=== PATIENT | female | born 1985 ===

== ENCOUNTER 2024-08-07 18:22 | Inpatient (IN) | payer SELFPAY ==
[2024-08-07] VITALS (15 sets, daily range): BP systolic 101–154; BP diastolic 40–119; PULSE 57–118; RESP 9–30; TEMP 35–39.3; O2SAT 92–100; BMI 23.0; BMI 32.0
--- NOTE | ~2024-08-07 | CT_ITS ---
CLINICAL HISTORY: fever, undifferentiated ,pt combative and unable to hold still. Best images obtain ed CT abdomen and pelvis without contrast Comparison: Chest CT from same day. Findings: Mild bibasilar atelectasis/pneumonitis. Please refer to separate report for chest CT evaluation. Mild splenomegaly. Portions of the liver are obscured in this noncontrast study with artifacts including motion artifacts, superficial metal, and positioning of the upper extremities. Mild volume loss including the tail of the pancreas. Gallbladder is unremarkable for noncontrast CT with artifacts. Adrenal glands are partly obscured but otherwise unremarkable. No hydronephrosis. No definite obstructing stone of either kidney or either ureter. A small focus of gas in the urinary bladder is nonspecific can be seen with Starks catheter placement and/or recent instrumentation. No definite drainable abscess by CT. Ventral superficial gas anomalies likely related to medicinal injections. Small mesenteric and periaortic lymph nodes are nonspecific and may be reactive. Mild free fluid in the abdomen and pelvis is nonspecific and greater than expected for physiologic fluid. No small bowel obstruction. Severe stool burden present, including the cecum. Imaged appendix within normal limits (imaged 68 through 63 of series 11 right ovary approaches the upper limits of normal by noncontrast CT. Left adnexa is unremarkable for noncontrast CT. Imaged uterus is mildly retroverted and retroflexed. Mild distention of the urinary bladder. No free intraperitoneal air. Multilevel Schmorl's nodes of the imaged spine. Mild pelvis deformities appear old/chronic. Facet arthropathy noted particularly in the lower lumbar spine. IMPRESSION: 1. No hydronephrosis. 2. Severe stool burden. No small bowel obstruction. 3. Small focus of gas in the urinary bladder may be related to Starks catheter placement or instrumentation. 4. Mild free fluid in the pelvis is greater than expected for physiologic. Differential considerations include findings of pelvic inflammatory disease. No definite drainable abscess by noncontrast CT. This document has been electronically signed by: Clarence Galarza MD on 08/07/2024 23:13:05
--- NOTE | ~2024-08-07 | CT_ITS ---
CLINICAL HISTORY: aMS, hx TBI CT head without contrast Comparison: Head CT from 08/07/2024 Findings: No acute intracranial hemorrhage. No midline shift or hydrocephalus. No large arterial territorial infarction by CT. Mild volume loss is generalized including imaged vermis. Fluid and mucosal thickening of the paranasal sinuses multifocal. Indwelling nasoenteric tube is partially imaged on the left. Trace mastoid effusions. No acute skull fracture. Likely soft tissue swelling of the left frontal convexity anterior scalp. Degenerative changes include imaged temporomandibular joints. IMPRESSION: No acute intracranial abnormality by CT. This document has been electronically signed by: Clarence Galarza MD on 08/08/2024 00:02:13
--- NOTE | ~2024-08-07 | XR_ITS ---
CLINICAL HISTORY: ETT, OG tube placement 1 view chest x-ray Comparison: Chest CT from 08/07/2024. Findings: Bilateral airspace disease concerning for pneumonitis/pneumonia, right worse than left. Low lung volumes noted. The endotracheal tube terminates in the mid to lower thoracic trachea. Tip of the enteric tube terminates superior likely in the upper esophagus looped tube about the gastroesophageal junction. No definite pneumothorax or pleural effusion. No displaced rib fracture by one view portable radiograph. IMPRESSION: 1. Abnormal positioning of the enteric tube with tip directed superiorly in the upper thorax unlikely proximal esophagus. 2. The endotracheal tube terminates in the mid to lower thoracic trachea. This document has been electronically signed by: Clarence Galarza MD on 08/07/2024 23:40:29
--- NOTE | ~2024-08-07 | CT_ITS ---
CLINICAL HISTORY: head pain ,pt combative and unable to hold still. Best images obtained CT head without contrast Comparison: None Findings: Study is degraded by motion artifacts. No significant midline shift. No hydrocephalus. Cavum velum interpositum. No definite acute intracranial hemorrhage, accounting for artifacts. Parenchyma is partly obscured by motion artifacts without defined large arterial territorial infarction. No definite acute skull fracture of the imaged calvarium accounting for motion artifacts. Fluid and mucosal thickening of the paranasal sinuses nonspecific. Likely small right mastoid effusion. IMPRESSION: 1. No hydrocephalus or midline shift. 2. No definite acute intracranial hemorrhage accounting for artifacts. This document has been electronically signed by: Clarence Galarza MD on 08/07/2024 23:04:21
--- NOTE | ~2024-08-07 | CT_ITS ---
CLINICAL HISTORY: found in floor unresponsive, AMS CT cervical spine without contrast Comparison: CT of the cervical spine from 08/07/2024. Findings: Endotracheal tube and enteric tube are partially imaged in the [id number]. Accessory ribs noted at C7. No acute fracture of the cervical spine. Mild straightening of the cervical lordosis. No significant osseous spinal stenosis by CT. No paraspinal hematoma. Mild subcutaneous edema is noted. Lungs are mostly obscured. Please refer to chest CT report. IMPRESSION: No acute fracture of the cervical spine. This document has been electronically signed by: Clarence Galarza MD on 08/08/2024 00:00:54
--- NOTE | ~2024-08-07 | CT_ITS ---
CLINICAL HISTORY: fever, undifferentiated ,pt combative and unable to hold still. Best images obtain ed CT chest without contrast Comparison: None available Findings: Bibasilar atelectasis and/or pneumonitis accentuated by motion artifacts. Pneumonia considered given consolidation in the posterior basal segmental right lower lobe measuring 1.5 cm. Other lung lesions not excluded at this time. No definite mediastinal hematoma accounting for motion artifacts and mild residual thymic tissue. Mild mediastinal fluid noted. No definite enlarged mediastinal lymphadenopathy by noncontrast CT with motion artifacts. Transitional vertebral anatomy. Small 1st ribs for the purposes of this dictation only. Mild height losses of the T6, T7, and T8 appear old/chronic, by this numbering system. Vacuum disc phenomenon including T8-T9. Facet arthropathy in mid and lower thoracic spine greater than expected for age. No definite displaced rib fracture in the field of view accounting for artifacts. Please refer to separate report for included partially imaged abdomen. IMPRESSION: Bilateral pulmonary opacities concerning for pneumonitis and/or pneumonia. Recommend attention on follow-up to ensure resolution. This document has been electronically signed by: Clarence Galarza MD on 08/07/2024 23:15:40
--- NOTE | ~2024-08-07 | CT_ITS ---
CLINICAL HISTORY: neck pain , pt combative and unable to hold still. Best images obtained CT cervical spine without contrast Comparison: None available Findings: Study is degraded by motion artifacts. No definite acute fracture of the cervical spine accounting for motion artifacts. Mild degenerative changes include facet arthropathy. Likely moderate left-sided foraminal narrowing at C2-C3 accounting for artifacts. No significant osseous spinal canal stenosis by CT with artifacts. No definite drainable paraspinal fluid collection or defined paraspinal hematoma. Motion artifacts noted in the imaged lung apices. IMPRESSION: No definite acute fracture accounting for artifacts. This document has been electronically signed by: Clarence Galarza MD on 08/07/2024 23:01:15
--- NOTE | 2024-08-07 18:51 | ED.AMS ---
HPI - Altered Mental Status General Chief Complaint: Altered Mental Status Stated Complaint: non verbal, ?syncope, unable o get info Time Seen by Provider: 08/07/24 18:51 Source: patient and EMS Mode of arrival: EMS Limitations: language barrier and altered mental status History of Present Illness ED Provider: Stephan Lainez DO HPI narrative: Suspected 39-year-old female with unknown name and unable to elicit with multiple attempts who is nonverbal and was brought in by EMS after being found on the ground at [facility] with suspected syncope versus seizure activity. The patient required my immediate attention due to potential serious illness and undifferentiated state. I am unable to obtain a full history despite multiple attempts using claims analyst. The patient is able to tell me that she had a traumatic brain injury in the past and has had seizures. Does report 6/10 nonspecific headache and anterior neck pain. Unable to elicit any medication history. Unable to elicit if the patient is experiencing any pain or respiratory distress otherwise. Unable to elicit if she is using recreational drugs. Related Data Allergies Allergy/AdvReac Type Severity Reaction Status Date / Time No Known Allergies Allergy Verified 08/07/24 18:41 Review of Systems Review of Systems: Yes Unobtainable due to mental condition and Unobtainable due to mental status PMFSH Social History Social History Do you have a plan to hurt others: No Plan Physical Exam ED Vital Signs: Vital Signs - 24 hr 08/07/24 18:38 08/07/24 19:02 08/07/24 20:30 Temperature 102.8 F H 102.6 F H Pulse Rate 72 90 83 Respiratory Rate 18 20 20 Blood Pressure 154/73 H 154/73 H 134/56 L Pulse Oximetry 96 92 95 Oxygen Delivery Method Nasal Cannula Room Air Nasal Cannula Oxygen Flow Rate 2 Fraction of Inspired Oxygen 08/07/24 20:30 08/07/24 21:30 08/07/24 21:56 Temperature 101.8 F H 100.5 F H Pulse Rate 74 60 Respiratory Rate 9 L 16 Blood Pressure 134/56 L 105/44 L Pulse Oximetry 100 100 Oxygen Delivery Method Nasal Cannula Nasal Cannula Oxygen Flow Rate 5 2 Fraction of Inspired Oxygen 30 08/07/24 22:00 08/07/24 22:11 08/07/24 22:13 Temperature Pulse Rate 93 90 118 H Respiratory Rate 18 18 16 Blood Pressure 152/119 H 131/56 L 131/56 L Pulse Oximetry 94 100 100 Oxygen Delivery Method Nasal Cannula Ambu-Bag Ambu-Bag Oxygen Flow Rate 2 Fraction of Inspired Oxygen 08/07/24 22:48 08/07/24 22:57 08/07/24 23:12 Temperature Pulse Rate 85 71 71 Respiratory Rate 30 H 16 17 Blood Pressure 136/73 128/75 101/40 L Pulse Oximetry 100 100 98 Oxygen Delivery Method Oxygen Flow Rate Fraction of Inspired Oxygen 08/07/24 23:24 08/07/24 23:30 08/07/24 23:38 Temperature 98.4 F 98.4 F Pulse Rate 59 57 67 Respiratory Rate 25 H 16 16 Blood Pressure 101/41 L 122/54 L 117/52 L Pulse Oximetry 97 Oxygen Delivery Method Oxygen Flow Rate Fraction of Inspired Oxygen 08/07/24 23:52 08/08/24 00:30 08/08/24 00:37 Temperature 98.1 F Pulse Rate 66 78 85 Respiratory Rate 17 20 16 Blood Pressure 135/76 155/87 H Pulse Oximetry 96 100 Oxygen Delivery Method Mechanical Ventilation Oxygen Flow Rate Fraction of Inspired Oxygen BMI result Body Mass Index 32.0 Constitutional: ?Alert at times, somnolent at times, multiple episodes of possible seizure activity although responding to pain and without postictal state. Able to communicate with gyn physician intermittently. HEENT: ?Normocephalic, atraumatic. ?Moist mucous membranes Eyes: ?PERRL, EOMI Neck: ?Supple, nontender Chest: ?No chest wall tenderness Respiratory: ?Lungs clear to auscultation, no increased work of breathing Cardio: ?Regular rate and rhythm, no murmur, 2+ radial and DP pulses symmetrically GI: ?Soft, nondistended, nontender Back: ?Normal range of motion, nontender Skin: ?No rash, no lesions, multiple old scars of the extremities Neuro: ?Unable to obtain orientation, significantly limited neurologic exam, no nystagmus or deviation of gaze, moves all 4 extremities, no focal deficits Extremities: ?No swelling or tenderness, full range of motion Psych: ?Uncooperative with evaluation and workup, occasionally thrashing about with attempts to obtain IV access. Medications Administered Generic Name Dose Route Start Last Admin Trade Name Freq PRN Reason Stop Dose Admin Midazolam HCl 50 mg in 50 mls @ 2 mls/hr 08/07/24 22:30 08/07/24 22:57 Versed IVCONT 10 mg/hr .Q24H JUAN 10 mls/hr Infusion Protocol 2 MG/HR Propofol 1,000 mg in 100 mls @ 0 mls/hr 08/07/24 23:00 08/07/24 23:52 Diprivan IVCONT 50 mcg/kg/min .Q0M JUAN 31.26 mls/hr Titration Protocol Per Protocol Fentanyl 1,000 mcg in 100 mls @ 0 mls/hr 08/08/24 00:15 08/08/24 00:30 Sublimaze/Ns IVCONT 25 mcg/hr .Q0M JUAN 2.5 mls/hr Administration Protocol Per Protocol Discontinued Medications Generic Name Dose Route Start Last Admin Trade Name Freq PRN Reason Stop Dose Admin Ceftriaxone Sodium 1 gm 08/07/24 21:28 08/08/24 00:09 Ceftriaxone Sodium 1 Gm Vial IVPUSH 08/07/24 21:29 1 gm ONCE ONE Administration Droperidol 2.5 mg 08/07/24 20:48 08/07/24 20:55 Droperidol 5 Mg/2 Ml Vial IVPUSH 08/07/24 20:49 2.5 mg ONCE ONE Administration Etomidate 20 mg 08/07/24 21:13 08/07/24 22:11 Etomidate 20 Mg/10 Ml Vial IVPUSH 08/07/24 21:14 20 mg NOW STA Administration Fentanyl 100 mcg 08/08/24 00:20 08/08/24 00:25 Fentanyl Citrate/Pf 100 Mcg/2 Ml Vial IVPUSH 08/08/24 00:21 100 mcg ONCE ONE Administration Protocol Levetiracetam 4,500 mg/ Sodium 145 mls @ 520 mls/hr 08/07/24 19:30 08/07/24 20:08 Chloride IV 08/07/24 19:46 Infused ONCE ONE Infusion Acetaminophen 1,000 mg in 100 mls @ 400 mls/hr 08/07/24 19:51 08/07/24 20:10 Ofirmev IV 08/07/24 20:05 Infused ONCE ONE Infusion Sodium Chloride 1,000 mls @ 999 mls/hr 08/07/24 21:28 08/08/24 00:10 Ns IVCONT 08/07/24 22:28 999 mls/hr .Q1H1M ONE Administration Ketamine HCl 72.7 mg 08/07/24 21:45 08/07/24 21:55 Ketamine Hcl 500 Mg/5 Ml Vial 1 mg/kg (72.7 mg) 08/07/24 21:46 72.7 mg IVPUSH Administration ONCE ONE Ketamine HCl 72.7 mg 08/07/24 23:00 08/07/24 22:00 Ketamine Hcl 500 Mg/5 Ml Vial 1 mg/kg (72.7 mg) 08/07/24 23:01 72.7 mg IVPUSH Administration ONCE ONE Midazolam HCl 10 mg 08/07/24 19:28 08/07/24 19:32 Midazolam Hcl 5 Mg/Ml Vial IM 08/07/24 19:29 10 mg ONCE ONE Administration Midazolam HCl 10 mg 08/07/24 20:15 08/07/24 19:05 Midazolam Hcl 10 Mg/10 Ml Vial IM 08/07/24 20:16 10 mg ONCE ONE Administration Midazolam HCl 4 mg 08/07/24 20:36 08/07/24 20:40 Midazolam Hcl 2 Mg/2 Ml Vial IVPUSH 08/07/24 20:37 4 mg ONCE ONE Administration Propofol 100 mg 08/07/24 23:12 08/07/24 22:57 Propofol 200 Mg/20 Ml Vial IVPUSH 08/07/24 23:13 100 mg ONCE ONE Administration Rocuronium [place] 100 mg 08/07/24 21:13 08/07/24 22:12 Rocuronium [place] 50 Mg/5 Ml Vial IVPUSH 08/07/24 21:14 100 mg ONCE ONE Administration Medical Decision Making Medical Decision Making MDM Narrative: This is an undifferentiated patient with very minimal information elicited from history and exam. There are no clear findings of infection on exam however the patient does have a rectal temperature of nearly 103 degrees F. despite multiple efforts to redirect the patient poor cooperation for medical care, the patient continued to thrash about. She received 2 doses of midazolam, each 10 mg IM. Another provider was able to obtain an ultrasound guided IV and the patient received IV Tylenol. Although the patient does not meet criteria for sepsis at this time, we will pursue broad infectious workup. Due to potential epileptic seizures although much more likely psychogenic/nonepileptic seizures present, the patient received status epilepticus dosing of levetiracetam. Due to the head pain, we attempted to undergo CT imaging although the patient continued to thrash about and received 2.5 mg of IV droperidol with no improvement. The patient may require deep sedation in order to obtain further workup including proper CT imaging as well as lumbar puncture for concern for meningitis. The patient will be signed out to the pending the remainder of the workup. I did review the patient's initial labs which show an anemia of 8.7 with no prior for comparison, no leukocytosis or significant leukopenia, borderline hypoglycemia but none to explain the symptoms, mild hypokalemia, unremarkable lactic acid, unremarkable venous blood gas and negative serum tox screen. Differential diagnosis continues to be broad. I received sign-out from my colleague Dr. Lainez empiric treatment was started including IV fluids, vancomycin and ceftriaxone patient has already received 24 mg of Versed, 2.5 mg of droperidol. Patient is still moving and we can not get any images done. I gave the patient 2 milligrams/kilogram of ketamine. Patient is still awake, thrashing, unable to get her still for imaging. Patient has a very large amount of medications patient is still awake a moving and trying to rip her lines out. Patient was intubated with 20 of etomidate, 100 of rocuronium. She is on a Versed drip and propofol drip CT scan images were obtained successfully. Patient is now waking up again despite being on maximum dose of Versed and propofol, patient is now on a 3rd drip now with fentanyl. My interpretation of labs: Patient's white blood cell count 4.6, hemoglobin 8.7, hematocrit 27.6, platelets 241. chemistry shows a potassium of 3.2, repleted IV, lactic acid 1.0, hCG negative, LFTs pending. Urinalysis negative for UTI, toxicology positive for fentanyl, barbiturates, benzodiazepines, THC. Negative for alcohol CT scan of the abdomen shows mild free fluid in the pelvis. CT scan of the chest shows bilateral pulmonary opacities, pneumonitis versus pneumonia cervical spine does not show any acute abnormalities, head CT no acute abnormalities since the patient came in with altered mental status and fever, a lumbar puncture was attempted. However, it was unsuccessful. Patient is already being treated with empiric IV Antibiotics patient's blood pressure is stable, normal lactic, no tachycardic, sepsis is not suspected I discussed the patient with Dr. Hays of, patient being admitted Differential Diagnosis Differential Diagnoses: The differential diagnosis associated with the presentation includes ( as above) Admission/Observation Consideration of admission/observation: Escalation of care including admission/observation considered Lab Data MDM Lab Attestation statement: I reviewed the patient's lab results. 08/07/24 19:44 08/07/24 19:44 Labs: Lab Results 08/07/24 08/07/24 08/07/24 Range/Units 19:01 19:44 19:52 WBC 4.6 L (4.8-10.8) X10*3/uL RBC 3.76 L (4.20-5.50) X10*6/uL Hgb 8.7 L (12.0-16.0) g/dl Hct 27.6 L (37.0-47.0) % MCV 73.4 L (80.0-98.0) fL MCH 23.1 L (27.0-33.0) pg MCHC 31.5 (31.0-35.0) g/dl RDW 15.9 (11.0-16.0) % Plt Count 241 (160-400) X10*3/uL MPV 11.6 (9.4-12.3) fL Immature Gran % (Auto) 1.1 H (0.0-0.4) % Neut % (Auto) 79.0 H (45-73) % Lymph % (Auto) 12.7 L (20-40) % [place] % (Auto) 4.6 (2-11) % Eos % (Auto) 1.5 (0-4) % Baso % (Auto) 1.1 (0-2) % Lymph # (Auto) 0.6 L (1.2-4.9) X10*3/uL [place] # (Auto) 0.2 (0.1-1.2) X10*3/uL Eos # (Auto) 0.1 (0.0-0.4) X10*3/uL Baso # (Auto) 0.1 (0.0-0.2) X10*3/uL Abs Immat Gran (auto) 0.05 H (0.00-0.03) X10*3/uL Absolute Neuts (auto) 3.6 (2.0-8.3) x10*3/uL Absolute Nucleated RBC 0.020 H (0.0-0.012) X10*3/uL Nucleated RBC % (auto) 0.4 H (0.0-0.2) /100WBC VBG pH 7.41 (7.32-7.43) VBG pCO2 33 mmHg VBG pO2 41 mmHg VBG HCO3 21 L (22-26) mmol/L VBG O2 Saturation 62.0 % VBG Base Excess -2.3 mmol/L Sodium 141 (135-145) mmol/L Potassium 3.2 L (3.3-5.1) mmol/L Chloride 109 H (96-108) mmol/L Carbon Dioxide 20 L (22-29) mmol/L Anion Gap 15 (12-20) BUN 10 (9-16) mg/dL Creatinine 0.78 (0.5-1.4) mg/dL Estim Creat Clear Calc 103.6 Estimated GFR > 60 POC Glucose 71 (60-115) mg/dL Random Glucose 89 (60-115) mg/dL Lactic Acid 1.0 (0.5-2.0) mmol/L Calcium 8.3 L (8.4-10.2) mg/dL Beta HCG, Quant < 2 mIU/mL Urine Color Urine Appearance Urine pH (5.0-9.0) Ur Specific Reva (1.005-1.025) Urine Protein (Neg-Trace) mg/dL Urine Glucose (UA) (Negative) mg/dL Urine Ketones (Negative) mg/dL Urine Blood (Negative) Urine Nitrite (Negative) Ur Leukocyte Esterase (Negative) Salicylates < 5.0 L (15-30) mg/dL Urine Opiates Screen (Not Detect) Ur Buprenorphine Scrn (Not Detect) ng/mL Ur Oxycodone Screen (Not Detect) ng/mL Urine Methadone Screen (Not Detect) ng/mL Urine Fentanyl Screen (Not Detect) Acetaminophen < 3 (<30) mcg/mL Ur Barbiturates Screen (Not Detect) Ur Phencyclidine Scrn (Not Detect) Ur Amphetamines Screen (Not Detect) U Benzodiazepines Scrn (Not Detect) Urine Cocaine Screen (Not Detect) U Marijuana (THC) Screen (Not Detect) Ethyl Alcohol < 10 mg/dL 08/07/24 Range/Units 23:34 WBC (4.8-10.8) X10*3/uL RBC (4.20-5.50) X10*6/uL Hgb (12.0-16.0) g/dl Hct (37.0-47.0) % MCV (80.0-98.0) fL MCH (27.0-33.0) pg MCHC (31.0-35.0) g/dl RDW (11.0-16.0) % Plt Count (160-400) X10*3/uL MPV (9.4-12.3) fL Immature Gran % (Auto) (0.0-0.4) % Neut % (Auto) (45-73) % Lymph % (Auto) (20-40) % [place] % (Auto) (2-11) % Eos % (Auto) (0-4) % Baso % (Auto) (0-2) % Lymph # (Auto) (1.2-4.9) X10*3/uL [place] # (Auto) (0.1-1.2) X10*3/uL Eos # (Auto) (0.0-0.4) X10*3/uL Baso # (Auto) (0.0-0.2) X10*3/uL Abs Immat Gran (auto) (0.00-0.03) X10*3/uL Absolute Neuts (auto) (2.0-8.3) x10*3/uL Absolute Nucleated RBC (0.0-0.012) X10*3/uL Nucleated RBC % (auto) (0.0-0.2) /100WBC VBG pH (7.32-7.43) VBG pCO2 mmHg VBG pO2 mmHg VBG HCO3 (22-26) mmol/L VBG O2 Saturation % VBG Base Excess mmol/L Sodium (135-145) mmol/L Potassium (3.3-5.1) mmol/L Chloride (96-108) mmol/L Carbon Dioxide (22-29) mmol/L Anion Gap (12-20) BUN (9-16) mg/dL Creatinine (0.5-1.4) mg/dL Estim Creat Clear Calc Estimated GFR POC Glucose (60-115) mg/dL Random Glucose (60-115) mg/dL Lactic Acid (0.5-2.0) mmol/L Calcium (8.4-10.2) mg/dL Beta HCG, Quant mIU/mL Urine Color Yellow Urine Appearance Clear Urine pH 6.0 (5.0-9.0) Ur Specific [place] 1.015 (1.005-1.025) Urine Protein Trace (Neg-Trace) mg/dL Urine Glucose (UA) Negative (Negative) mg/dL Urine Ketones 15 (Negative) mg/dL Urine Blood Negative (Negative) Urine Nitrite Negative (Negative) Ur Leukocyte Esterase Negative (Negative) Salicylates (15-30) mg/dL Urine Opiates Screen Not Detected (Not Detect) Ur Buprenorphine Scrn Not Detected (Not Detect) ng/mL Ur Oxycodone Screen Not Detected (Not Detect) ng/mL Urine Methadone Screen Not Detected (Not Detect) ng/mL Urine Fentanyl Screen POSITIVE H (Not Detect) Acetaminophen (<30) mcg/mL Ur Barbiturates Screen POSITIVE H (Not Detect) Ur Phencyclidine Scrn Not Detected (Not Detect) Ur Amphetamines Screen Not Detected (Not Detect) U Benzodiazepines Scrn POSITIVE H (Not Detect) Urine Cocaine Screen Not Detected (Not Detect) U Marijuana (THC) Screen POSITIVE H (Not Detect) Ethyl Alcohol mg/dL Independent Interpretation I performed an independent interpretation of an: EKG and CT Scan Interpretation: Normal sinus rhythm at 74 beats per minute, normal axis, unremarkable intervals, no diagnostic ST or T-wave abnormalities, no prior for comparison. Radiology Impression Discussion of test interpretation with radiology: I have reviewed the radiologist's reading. Radiologist Impression: No acute intracranial abnormality by CT. No acute fracture of the cervical spine. Abnormal positioning of the enteric tube with superiorly directed tip of the enteric tube likely in the upper esophagus we will replace the OG tube Bilateral pulmonary opacities concerning for pneumonitis and/or pneumonia. Recommend attention on follow-up to ensure resolution. 1. No hydronephrosis. 2. Severe stool burden. No small bowel obstruction. 3. Small focus of gas in the urinary bladder may be related to Starks catheter placement or instrumentation. 4. Mild free fluid in the pelvis is greater than expected for physiologic. Differential considerations include findings of pelvic inflammatory disease. No definite drainable abscess by noncontrast CT. Critical Care Time Critical Care Time Critical Care Time: Yes Total Critical Care Time: 75 Attestation: Given the patient's uncooperation, frequent bedside monitoring with multiple possible seizures, status epilepticus dosing of benzodiazepines and anticonvulsant therapy, treatment for fever and evaluation of sedation after multiple rounds of medication with potential for deterioration, required critical care time as above. Stephan Lainez DO I have personally provided 90 minutes of critical care time. Time includes review of lab data, radiology results, discussion with consultants, and monitoring for potential decompensation. Intervention performed as documented. Discharge Plan Discharge Clinical Impression: Acute febrile illness, Seizure-like activity, Encephalopathy Patient Disposition: Admitted As Inpatient
[2024-08-07 19:04] LABS: Glucose, Whole Blood 71 mg/dL (60-115)
[2024-08-07] MEDS: Midazolam HCl 5 MG/ML VIAL 10 MG IM (19:32)
[2024-08-07 19:51] LABS: MANUAL DIFF FLAG NO
[2024-08-07] MEDS: Acetaminophen 1,000 MG/100 ML PIGGYBACK 400 MG IV (19:55)
[2024-08-07 19:56] LABS: Venous Blood Gas Refer to POC result
[2024-08-07 19:56] LABS: VBG Base Excess -2.3 mmol/L; VBG HCO3 21 mmol/L (22-26); VBG pCO2 33 mmHg; VBG pH 7.41 (7.32-7.43); VBG pO2 41 mmHg
--- NOTE | 2024-08-07 20:05 | PC.NURSE ---
This RN entered room to assist security w/ getting patient back into the bed. Determined w/ EMS that patient might speak ALS, video building construction foreman obtained. Patient able to tell building construction foreman her name - Kelsi, that she fell and hit her head, and that her head and L collar bone area are hurting. Patient increasingly agitated, second RN Adriana to get provider Dr. Aguilar. Provider then at bedside asking patient questions via building construction foreman, patient able to answer minimally. Patient suddenly unresponsive, flopped back on bed. Additional assistance summoned, patient placed on monitor. Verbal order for 10IM Versed obtained from Dr. Aguilar, given in 2 doses in L gluteus. Patient repositioned on bed, plan to obtain blood work/IV in place. Primary RN Elise made aware.
[2024-08-07 20:08] LABS: Anion Gap 15 (12-20); Blood Urea Nitrogen 10 mg/dL (9-16); Calcium 8.3 mg/dL (8.4-10.2); Carbon Dioxide 20 mmol/L (22-29); Chloride 109 mmol/L (96-108); Creatinine Clr Calc Pharmacy 103.6; Estimated Glomerular Filt Rate > 60; Ethanol < 10 mg/dL; Glucose Random 89 mg/dL (60-115); Potassium 3.2 mmol/L (3.3-5.1); Sodium 141 mmol/L (135-145)
[2024-08-07 20:11] LABS: Acetaminophen LAB < 3 mcg/mL (<30); Salicylate < 5.0 mg/dL (15-30)
[2024-08-07 20:21] LABS: Basophils Absolute Auto 0.1 X10*3/uL (0.0-0.2); Basophils Percent Auto 1.1 % (0-2); Eosinophils Absolute Auto 0.1 X10*3/uL (0.0-0.4); Eosinophils Percent Auto 1.5 % (0-4); Hematocrit 27.6 % (37.0-47.0); Hemoglobin 8.7 g/dl (12.0-16.0); Imm Gran Abs Auto 0.05 X10*3/uL (0.00-0.03); Imm Gran Pct Auto 1.1 % (0.0-0.4); Lymphocytes Absolute Auto 0.6 X10*3/uL (1.2-4.9); Lymphocytes Percent Auto 12.7 % (20-40); Mean Corpuscular HGB Conc 31.5 g/dl (31.0-35.0); Mean Corpuscular Hemoglobin 23.1 pg (27.0-33.0); Mean Corpuscular Volume 73.4 fL (80.0-98.0); Mean Platelet Volume 11.6 fL (9.4-12.3); Monocytes Absolute Auto 0.2 X10*3/uL (0.1-1.2); Monocytes Percent Auto 4.6 % (2-11); NRBC Pct Auto 0.4 /100WBC (0.0-0.2); Neutrophils Absolute Auto 3.6 x10*3/uL (2.0-8.3); Platelet Count 241 X10*3/uL (160-400); Red Blood Count 3.76 X10*6/uL (4.20-5.50); Red Cell Distribution Width 15.9 % (11.0-16.0); White Blood Count 4.6 X10*3/uL (4.8-10.8)
[2024-08-07] MEDS: Midazolam HCl 2 MG/2 ML VIAL 4 MG IVPUSH (20:40)
--- NOTE | 2024-08-07 20:51 | PC.NURSE ---
Assisted with pt care as the primary RN, Elise, was not in the room and the second RN, Meli, who was providing care along with day shift RN's Adriana and Anette, was called to a Code Blue. PT is deaf and video medical stenographer being used at bedside. Pt brought in for AMS after a reported HS from syncopal episode. PT refusing care, expressing desire to leave the ED. PT report she lives alone and does not have family or emergency contacts. PT began experiencing recurrent seizure activity with notable hand stiffness, side eye gazing and unresponsiveness. During episodes, pt desating to 78% 02 applied via NC at 4L. TW administered 2nd dose of versed administered as per may. Ultrasound guided IV placed by Kush Briggs upper arm- labs drawn and sent to lab. Pt found to be febrile- provider notified and medications administered as per may. Clarified Keppra dosing with provider, who confirmed this is the maximum dose used for suspected status epilepticus, which the patient appeared to be experiencing. Notified primary RN at 1951 of pts possible septic status
[2024-08-07] MEDS: droPERidol 5 MG/2 ML VIAL 2.5 MG IVPUSH (20:55)
[2024-08-07] MEDS: Ketamine HCl 500 MG/5 ML VIAL 72.7 MG IVPUSH ×2 (21:55→22:00)
--- NOTE | 2024-08-07 22:10 | PC.NURSE ---
Addendum entered by Elise Evans 08/07/24 22:40: 2217: OG placed at this time. Original Note: RT, MD Gonzalez, rock contractor Kailey, Meli, RN, arabella Colin, and Primary RN Elise present at this time. Vitals: pulse: 90, 100% oxygen, rr: 16, bp: 131/56 2211: 20 of Etomidate given 2212: 100 of [place] given 2215: Pt. is intubated- 7.5 tube, 24 at the lip, + color change. 2217: Versed pari yousif, awaiting MD orders for dose.
[2024-08-07] MEDS: Etomidate 20 MG/10 ML VIAL IVPUSH (22:11)
[2024-08-07] MEDS: Rocuronium Bromide 50 MG/5 ML VIAL 100 MG IVPUSH (22:12)
[2024-08-07] MEDS: Midazolam HCl/NS 50 MG/50 ML PLAST..BAG IVCONT (22:48)
[2024-08-07] MEDS: propofoL 200 MG/20 ML VIAL 100 MG IVPUSH (22:57)
[2024-08-07] MEDS: propofoL 1,000 MG/100 ML VIAL 18.76 MG IVCONT (23:12)
--- NOTE | 2024-08-07 23:16 | PC.NURSE ---
shell trim operator Xio informed pharmacy that MD Gonzalez will be adding the IV push orders of Profofol dose given by LUZ Garrison.
--- NOTE | 2024-08-07 23:18 | PC.NURSE ---
Addendum entered by Elise Evans 08/07/24 23:26: ABX and IVF still need to be given. Original Note: Report given to LUZ Montes.
--- NOTE | 2024-08-07 23:34 | PC.NURSE ---
Took over care at 23:30 from LUZ Olivares, temperature wise placed.
[2024-08-07 23:39] LABS: Appearance Urine Clear; Color Urine Yellow; Glucose Urine UA Negative (Negative); Leukocyte Esterase Urine Negative (Negative); Nitrite Urine Negative (Negative); Specific Gravity - Urine 1.015 (1.005-1.025); Urine Blood Negative (Negative); Urine Ketones 15 mg/dL (Negative); Urine Protein Trace mg/dL (Neg-Trace)
[2024-08-07 23:51] LABS: Amphetamine Screen Urine Not Detected (Not Detect); Barbiturates, Urine POSITIVE (Not Detect); Benzodiazepines Screen Urine POSITIVE (Not Detect); Buprenorphine Scr Not Detected (Not Detect); Cannabinoid Screen Urine POSITIVE (Not Detect); Cocaine Screen Urine Not Detected (Not Detect); Fentanyl, urine POSITIVE (Not Detect); Methadone Screen, Urine Not Detected (Not Detect); Opiate Screen Urine Not Detected (Not Detect); Oxycodone Screen Urine Not Detected (Not Detect); Phencyclidine Screen Urine Not Detected (Not Detect)
[2024-08-08] VITALS (61 sets, daily range): BP systolic 85–183; BP diastolic 38–96; PULSE 41–126; RESP 10–35; TEMP 34.5–37.7; O2SAT 25–100; BMI 35.9
--- NOTE | 2024-08-08 | ECG_ITS ---
Test Reason : bradycardia Blood Pressure : */* mmHG Vent. Rate : 56 BPM Atrial Rate : 56 BPM P-R Int : 154 ms QRS Dur : 86 ms QT Int : 468 ms P-R-T Axes : 52 73 65 degrees QTcB Int : 451 ms Sinus bradycardia Otherwise normal ECG When compared with ECG of 07-Aug-2024 18:59, Nonspecific T wave abnormality no longer evident in Anterior leads Referred By: Janina Bates Electronically Signed By: SATHISH PELLETIER MD
[2024-08-08 00:01] LABS: HCG Quantitative < 2 mIU/mL
[2024-08-08] MEDS: cefTRIAXone sodium 1 GM VIAL IVPUSH (00:09)
[2024-08-08] MEDS: 0.9 % Sodium Chloride 1,000 ML 999 ML IVCONT (00:10)
[2024-08-08] MEDS: fentaNYL citrate/PF 100 MCG/2 ML VIAL IVPUSH (00:25)
[2024-08-08] MEDS: fentaNYL citrate/NS 1,000 MCG/100 ML PLAST..BAG 2.5 MCG IVCONT (00:30)
--- NOTE | 2024-08-08 00:34 | PC.NURSE ---
Fentanyl drip started per Dr. Aleman
--- NOTE | 2024-08-08 00:36 | PC.NURSE ---
NG removed by Dr. Aleman due to placement.
--- NOTE | 2024-08-08 00:48 | PC.NURSE ---
MARVIN attempt and unsuccessful by Dr. Gonzalez.
[2024-08-08 01:05] LABS: Alanine Aminotransferase 52 U/L (0-31); Albumin Level 3.5 g/dL (3.5-5.0); Aspartate Amino Transferase 82 U/L (5-31); Bilirubin Direct 0.2 mg/dL (0.0-0.5); Bilirubin Total 0.4 mg/dL (0.0-1.0); Total Protein 7.2 g/dL (6.5-8.0)
[2024-08-08 01:18] LABS: Lipase 336 U/L (8-78)
--- NOTE | 2024-08-08 01:29 | PC.NURSE ---
Combine report given by this LUZ and Kelly
[2024-08-08] MEDS: Enoxaparin Sodium 40 MG/0.4 ML SYRINGE SUBCUT (01:34)
[2024-08-08] MEDS: propofoL 1,000 MG/100 ML VIAL 31.26 MG IVCONT ×3 (01:35→23:09)
--- NOTE | 2024-08-08 01:59 | PM.CCHP ---
History of Present Illness Date of Service: 08/08/24 Attending physician on admission: Rupert Hays Chief Complaint: KEVIN Mcdonough is a [id number] female, name unknown, nonverbal, brought to the emergency room [place] suspected syncope versus seizure activity. 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 She complained of nonspecific headache and anterior neck pain. ED staff were unable to obtain a full history or elicit any medication history prescribed or otherwise. On the arrival to the ED, blood pressure 154/73, heart rate 72, temp 102.8 degrees, O2 sat 96% on 2 L. Laboratory data significant for WBC 4.6, hemoglobin 8.7, hematocrit 27.6, potassium 3.2, lactic acid 1.0,? AST 82, ALT 52, lipase 336. UDS positive for fentanyl, barbiturates, benzos, THC. Imaging: Cervical spine CT showed no acute fracture. Head CT: no hydrocephalus or midline shift, no acute ICH. Chest CT:? Bilateral pulmonary opacities concerning for pneumonitis and/ or pneumonia. Abd / pelvis CT:? No hydronephrosis, free fluid in the pelvis greater than expected.? Severe stool burden. ED course:? The patient was alert at times, intermittently somnolent, had multiple episodes of seizure-like activity without postictal state and responding to pain. She was uncooperative and combative with care.? She received a total of 24 mg midazolam, Keppra 4500 mg, droperidol 2.5 mg, ceftriaxone 1 g. She was intubated for airway protection. A lumbar puncture was attempted, but was unsuccessful.?? ? Review of Systems Review of Systems: Yes unobtainable due to endotracheal tube PMFSH Social History Social History Household Members: Unknown / Unable to assess Housing: Unknown / Unable to assess Patient Tobacco Use Status: Tobacco use Unknown Currently Displaying Signs/Symptoms of Drug Intoxication Withdrawal: No Sabianism Healthcare Practices: HAN; intubated/sedated Advance Directives: No Advance Directives Information Provided: No (HAN; intubated/sedated; Identity unknown at this time) Do you have a plan to hurt others: No Plan Recently lost weight without trying: Unsure Nutrition Risks: On aspiration precautions Patient : No service: No Meds Allergies Allergy/AdvReac Type Severity Reaction Status Date / Time No Known Allergies Allergy Verified 08/07/24 18:41 Active Medications: Current Medications Ceftriaxone Sodium (Ceftriaxone Sodium 1 Gm Vial) 1 gm IVPUSH Q24H ON LICENSE OF [facility] Chlorhexidine Gluconate (Chlorhexidine Gluc Oral Rinse 15 Ml Mouthwash) 15 ml BUCCAL Q8H ON LICENSE OF [facility] Enoxaparin Sodium (Enoxaparin Sodium 40 Mg/0.4 Ml Syringe) 40 mg SUBCUT Q24H ON LICENSE OF [facility] Last Admin: 08/08/24 01:34 Dose: 40 mg Midazolam HCl (Versed) 50 mg in 50 mls @ 2 mls/hr IVCONT .Q24H ON LICENSE OF [facility]; Protocol Last Infusion: 08/08/24 01:10 Dose: Infused Propofol (Diprivan) 1,000 mg in 100 mls @ 0 mls/hr IVCONT .Q0M ON LICENSE OF [facility]; Protocol Last Admin: 08/08/24 01:35 Dose: 50 mcg/kg/min, 31.26 mls/hr Fentanyl (Sublimaze/Ns) 1,000 mcg in 100 mls @ 0 mls/hr IVCONT .Q0M ON LICENSE OF [facility]; Protocol Last Admin: 08/08/24 00:30 Dose: 25 mcg/hr, 2.5 mls/hr Levetiracetam (Keppra) 1,500 mg in 100 mls @ 400 mls/hr IV Q12H ON LICENSE OF [facility] Pantoprazole Sodium (Pantoprazole Sodium 40 Mg/10 Ml Vial) 40 mg IVPUSH DAILY@0630 ON LICENSE OF [facility] Pharmacy Consult (Consult Rx Vancomycin Dosing) 1 each MISCELLANE DAILY PRN PRN Reason: Consult order Pharmacy Consult (Consult Rx Vancomycin Dosing) 1 each MISCELLANE DAILY PRN PRN Reason: Consult order Home Medications ?Medication ?Instructions ?Recorded ?Confirmed ?Last Taken ?Type Unobtainable 08/08/24 08/08/24 Unknown History Physical Exam Vital Signs: Vital Signs: Last Vital Signs Temp 97.3 F 08/08/24 01:26 Pulse 59 08/08/24 01:35 Resp 15 08/08/24 01:35 BP 111/58 L 08/08/24 01:35 Pulse Ox 97 08/08/24 01:35 O2 Del Method Mechanical Ventil ation 08/08/24 00:56 O2 Flow Rate 2 08/07/24 22:00 FiO2 30 08/07/24 21:56 Oxygen Flow Rate 2 08/07/24 18:38 BMI result Body Mass Index 32.0 Const: Nutritional Appearance: obese HEENT: Head: Yes normocephalic and Yes atraumatic General nose exam: Normal external nose present (Nares patent, septum midline, sinuses nontender bilaterally.) Mouth: Normal oral and palatal mucosa present (No thrush, tongue in midline, mucosa moist.) Throat: Yes other (No erythema, no exudate.) Eyes: Pupils: Equal, round and reactive pupils present Neck: Neck: Yes supple (no thyromegaly, trachea midline.) Carotids: normal carotid upstroke Resp: Auscultation: clear to auscultation bilaterally (normal work of breathing, no accessory muscle use) Cardio: Jugular venous distension: no JVD Rate: bradycardic Rhythm: regular rhythm Heart sounds: no gallops, no murmurs and no rubs Peripheral pulses: Peripheral pulses 2+ throughout GI: Palpation (GI): Soft to palpation (nondistended.) and nontender Neuro: Cranial nerves: Yes Equal, round and reactive pupils present Extrem: Other: multiple old scars noted on all 4 extremities General: Yes full ROM, Yes capillary refill normal and Yes no clubbing, cyanosis or edema Results Labs 08/08/24 04:56 08/08/24 04:51 Labs: Laboratory Results - last 24 hr 08/07/24 08/07/24 08/07/24 19:01 19:44 19:52 MCV 73.4 L MCH 23.1 L MCHC 31.5 RDW 15.9 Plt Count 241 MPV 11.6 Immature Gran % (Auto) 1.1 H Neut % (Auto) 79.0 H Lymph % (Auto) 12.7 L [place] % (Auto) 4.6 Eos % (Auto) 1.5 Baso % (Auto) 1.1 Lymph # (Auto) 0.6 L [place] # (Auto) 0.2 Eos # (Auto) 0.1 Baso # (Auto) 0.1 Abs Immat Gran (auto) 0.05 H Absolute Neuts (auto) 3.6 Absolute Nucleated RBC 0.020 H Nucleated RBC % (auto) 0.4 H VBG pH 7.41 VBG pCO2 33 VBG pO2 41 VBG HCO3 21 L VBG O2 Saturation 62.0 VBG Base Excess -2.3 Anion Gap 15 Estim Creat Clear Calc 103.6 Estimated GFR > 60 POC Glucose 71 Random Glucose 89 Lactic Acid 1.0 Calcium 8.3 L Total Bilirubin 0.4 Direct Bilirubin 0.2 AST 82 H ALT 52 H Total Protein 7.2 Albumin 3.5 Lipase 336 H Beta HCG, Quant < 2 Urine Color Urine Appearance Urine pH Ur Specific [place] Urine Protein Urine Glucose (UA) Urine Ketones Urine Blood Urine Nitrite Ur Leukocyte Esterase Salicylates < 5.0 L Urine Opiates Screen Ur Buprenorphine Scrn Ur Oxycodone Screen Urine Methadone Screen Urine Fentanyl Screen Acetaminophen < 3 Ur Barbiturates Screen Ur Phencyclidine Scrn Ur Amphetamines Screen U Benzodiazepines Scrn Urine Cocaine Screen U Marijuana (THC) Screen Ethyl Alcohol < 10 08/07/24 23:34 MCV MCH MCHC RDW Plt Count MPV Immature Gran % (Auto) Neut % (Auto) Lymph % (Auto) [place] % (Auto) Eos % (Auto) Baso % (Auto) Lymph # (Auto) [place] # (Auto) Eos # (Auto) Baso # (Auto) Abs Immat Gran (auto) Absolute Neuts (auto) Absolute Nucleated RBC Nucleated RBC % (auto) VBG pH VBG pCO2 VBG pO2 VBG HCO3 VBG O2 Saturation VBG Base Excess Anion Gap Estim Creat Clear Calc Estimated GFR POC Glucose Random Glucose Lactic Acid Calcium Total Bilirubin Direct Bilirubin AST ALT Total Protein Albumin Lipase Beta HCG, Quant Urine Color Yellow Urine Appearance Clear Urine pH 6.0 Ur Specific [place] 1.015 Urine Protein Trace Urine Glucose (UA) Negative Urine Ketones 15 Urine Blood Negative Urine Nitrite Negative Ur Leukocyte Esterase Negative Salicylates Urine Opiates Screen Not Detected Ur Buprenorphine Scrn Not Detected Ur Oxycodone Screen Not Detected Urine Methadone Screen Not Detected Urine Fentanyl Screen POSITIVE H Acetaminophen Ur Barbiturates Screen POSITIVE H Ur Phencyclidine Scrn Not Detected Ur Amphetamines Screen Not Detected U Benzodiazepines Scrn POSITIVE H Urine Cocaine Screen Not Detected U Marijuana (THC) Screen POSITIVE H Ethyl Alcohol Imaging Radiologist's Impressions: CT head/brain wo IV con: IMPRESSION: No acute intracranial abnormality by CT. CT cervical spine wo IV con: IMPRESSION: No acute fracture of the cervical spine. CT chest wo IV con: IMPRESSION: Bilateral pulmonary opacities concerning for pneumonitis and/or pneumonia. Recommend attention on follow-up to ensure resolution. CT abdomen pelvis wo IV con: IMPRESSION: 1. No hydronephrosis. 2. Severe stool burden. No small bowel obstruction. 3. Small focus of gas in the urinary bladder may be related to Starks catheter placement or instrumentation. 4. Mild free fluid in the pelvis is greater than expected for physiologic. Differential considerations include findings of pelvic inflammatory disease. No definite drainable abscess by noncontrast CT. Assessment and Plan (1) Encephalopathy: Qualifiers: Encephalopathy type: unspecified encephalopathy Qualified Code(s): G93.40 - Encephalopathy, unspecified Status: Acute (2) Seizure-like activity: Status: Acute (3) Acute febrile illness: Status: Acute Plan 39-year-old appearing female, name and history unknown, admitted with encephalopathy, seizure-like activity and acute febrile illness of unknown origin.? Neuro: ? Acute alteration of mental status, cause unknown. History of TBI/seizures. Seizure like activity noted in ER. Continue Keppra. Substance abuse, meningitis in the differential. Will need LP. Currently sedated.? Cardiac:? No acute issues. Pulmonary: Bibasilar opacities noted on CT. Empiric antibiotics given in ED. Titrate off ventilatory support as tolerated. Renal: No acute issues. Endo:? No acute issues.? GI:? No acute issues. ID: Acute febrile illness. Sepsis not suspected. Lactic acid 1.0. No leukocytosis or significant leukopenia. Vanco, ceftriaxone. Will need LP to r/o meningitis. Cultures pending.? Heme/Onc:? Mild microcytic anemia. Baseline unknown. Trend Hgb and RBC indices.? Psych: Substance abuse disorder. Urine drug screen positive for fentanyl, barbituates, benzos, THC. Addiction medicine consult placed. Prophylaxis: Pneumatic hoses/lovenox, PPI Diet: NPO Patient's care was discussed in detail with Dr. Hays.? He is aware of all the above as well as the plan of care for this patient. Total time managing care of this patient today: 90 minutes.
[2024-08-08] MEDS: Midazolam HCl/NS 50 MG/50 ML PLAST..BAG IVCONT (02:05)
[2024-08-08] MEDS: vancomycin HCL 1,000 MG, vancomycin HCL 750 MG in 0.9 % Sodium Chloride 500 ML 267.5 MG IV (02:24)
[2024-08-08] MEDS: Potassium Chloride/H20 10 MEQ/100 ML PIGGYBACK 100 MEQ IV ×4 (02:35→05:45)
[2024-08-08] MEDS: Chlorhexidine Gluc Oral Rinse 15 ML MOUTHWASH BUCCAL ×3 (02:37→16:30)
[2024-08-08 02:44] LABS: Alkaline Phosphatase 256 U/L (39-117)
[2024-08-08 04:10] LABS: Glucose, Whole Blood 82 mg/dL (60-115)
[2024-08-08] MEDS: Ketamine HCl/NS 50 MG/5 ML SYRINGE 104.2 MG IVPUSH (04:10)
[2024-08-08 05:00] LABS: VBG Base Excess -1.1 mmol/L; VBG HCO3 20 mmol/L (22-26); VBG pCO2 22 mmHg; VBG pH 7.55 (7.32-7.43); VBG pO2 48 mmHg
[2024-08-08 05:11] LABS: TSH reflex Free T4 0.69 uIU/mL (0.32-4.0)
[2024-08-08 05:41] LABS: Basophils Percent Auto 0.6 % (0-2); Eosinophils Absolute Auto 0.2 X10*3/uL (0.0-0.4); Eosinophils Percent Auto 3.2 % (0-4); Hematocrit 26.6 % (37.0-47.0); Hemoglobin 8.4 g/dl (12.0-16.0); Imm Gran Abs Auto 0.08 X10*3/uL (0.00-0.03); Imm Gran Pct Auto 1.5 % (0.0-0.4); Lymphocytes Absolute Auto 2.1 X10*3/uL (1.2-4.9); Lymphocytes Percent Auto 38.8 % (20-40); MANUAL DIFF FLAG SCAN; Mean Corpuscular HGB Conc 31.6 g/dl (31.0-35.0); Mean Corpuscular Hemoglobin 23.4 pg (27.0-33.0); Mean Corpuscular Volume 74.1 fL (80.0-98.0); Mean Platelet Volume 12.1 fL (9.4-12.3); Monocytes Absolute Auto 0.9 X10*3/uL (0.1-1.2); Monocytes Percent Auto 16.3 % (2-11); Neutrophils Absolute Auto 2.1 x10*3/uL (2.0-8.3); Neutrophils Percent Auto 39.6 % (45-73); PLT CLUMP 1; Red Blood Count 3.59 X10*6/uL (4.20-5.50); Red Cell Distribution Width 16.1 % (11.0-16.0); SCAN SMEAR FLAG 1
[2024-08-08] MEDS: Pantoprazole Sodium 40 MG/10 ML VIAL IVPUSH (05:45)
[2024-08-08 05:51] LABS: Albumin Level 2.9 g/dL (3.5-5.0); Anion Gap 15 (12-20); Blood Urea Nitrogen 7 mg/dL (9-16); Calcium 7.9 mg/dL (8.4-10.2); Carbon Dioxide 17 mmol/L (22-29); Chloride 113 mmol/L (96-108); Creatinine Clr Calc Pharmacy 150.5; Estimated Glomerular Filt Rate > 60; Glucose Random 70 mg/dL (60-115); Magnesium 1.7 mg/dL (1.6-2.6); Phosphorus 3.1 mg/dL (2.7-4.5); Potassium 3.7 mmol/L (3.3-5.1); Sodium 141 mmol/L (135-145)
[2024-08-08 06:04] LABS: Venous Blood Gas Refer to POC result
[2024-08-08 06:24] LABS: Platelet Count 196 X10*3/uL (160-400); White Blood Count 5.4 X10*3/uL (4.8-10.8)
[2024-08-08 06:25] LABS: SLIDE REVIEW VERIFIED
--- NOTE | 2024-08-08 07:05 | PC.NURSE ---
This patient arrived to the ICU from the ED as an admission at 01:41 as a Valeria [place]cd[place] Utox wall positive for polysubstances. Patient intubated/ sedated, propofol infusing at 50mcg/kg/hr and fentanyl infusing at 25mcg/kg/min upon arrival. Patient was noted to be bradycardic in the 40?s and 50?s on arrival. Per transporting ED RN ?she just became bradycardic on transport?. Per handoff report, patient HR had been in the 60?s. [employer] aware and at bedside. Propofol reduced per [employer] and versed gtt ordered and initiated as the pt required sedation though was persistently bradycardic. EKG obtained showing sinus bradycardia. Pacer pads were placed on this patient out of caution. SBP 110s. Core-temp sensing wise catheter in place on arrival to the unit showing pt consistently normothermic. POC obtained shortly after arrival showing 82. Additional U/S IV placed, access very limited despite ultrasound use. Pt continued with difficulty maintaining optimal RASS goal/sedation needs as evidenced by patient intermittently attempting to sit up in bed during care despite soft wrist restraints to bilateral wrists. The patient also continued with bradycardia in the mid to upper 40?s, making it challenging to adequately sedate this patient. Versed, propofol, and fentanyl was titrated per [employer] Paulo?s verbal, and due to HR, [employer] orders were given for a 1x IVP ketamine, given with +effect, HR in 40-60?s for some time after administration (please see MAR for full titration details). Verbal orders to obtain morning labs including TSH level early per [employer] request, though patient is a difficult stick and phlebotomy encountered difficulties. Labs drawn by combination of finger stick with able labs and by [employer] from left hand/wrist. Intubated 7.5 ETT, 24cm at the lip. Vent managed by RT, AC/VC settings. Spo2 maintained >95%. PO care provided. Bed alarm on and safety measures in place. Please see vent settings for full details. Please see admission assessment, tasks in worklist, and MAR for full details. Report given to oncoming RN.
--- NOTE | 2024-08-08 07:20 | PHA.MEDREC ---
Pharmacy Consult ? Medication Reconciliation Pharmacy has not completed the medication reconciliation. Pt is currently sedated. Pt does not have insurance on file so unable to look at claim history as well.
--- NOTE | 2024-08-08 07:38 | PHA.PROG ---
Admission Date/Time: August 08, 2024 01:22 Indication: OTHER Weight in k.9 kg Adjusted body weight in K KG [place] body weight in K.8 KG Obesity Dosing Indication % IBW: Serum Creatinine - Last 168 Hours 08/07/24 08/08/24 19:44 04:51 Creatinine 0.78 0.70 Estimated CrCl and GFR - Last 168 Hours 08/07/24 08/08/24 19:44 04:51 Estim Creat Clear Calc 103.6 150.5 Estimated GFR > 60 > 60 Vancomycin Loading Dose: 1750 MG X1 Current Vancomycin Dosing Regimen: 1500 MG Q12H Vancomycin Monitoring using AUC goal of 400 - 600 range with trough as surrogate marker:PREDICTED AUC 549 Date and Time for next Vancomycin Level to be drawn: RANDOM BEFORE 3RD DOSE 08/08/24 @1999 Pharmacist Comments on Vancomycin Plan: BMI = 35.9 Vancomycin dosing will take advantage of [employer] as a clinical decision support tool that uses Bayesian modeling to calculate individual patient's pharmacokinetic parameters and forecast the patient's drug concentration time course with the target goal AUC 24 range of 400 - 600 mg/L/hr.
[2024-08-08] MEDS: fentaNYL citrate/NS 1,000 MCG/100 ML PLAST..BAG 15 MCG IVCONT (07:59)
[2024-08-08] MEDS: levETIRAcetam in NaCl (iso-os) 1,500 MG/100 ML PIGGYBACK 400 MG IV ×2 (08:06→22:54)
[2024-08-08 09:45] LABS: Lipase 181 U/L (8-78)
[2024-08-08] MEDS: propofoL 1,000 MG/100 ML VIAL 12.5 MG IVCONT ×2 (11:00→17:57)
[2024-08-08] MEDS: Piperacillin Sodium/Tazobactam 3.375 GM in 0.9 % Sodium Chloride 50 ML IV ×2 (11:04→16:30)
[2024-08-08] MEDS: vancomycin HCL 1,500 MG in 0.9 % Sodium Chloride 500 ML 333.33 MG IV (11:04)
[2024-08-08] MEDS: Dextrose 5 % 1,000 ML 75 ML IVCONT (11:53)
[2024-08-08] MEDS: SODIUM CHLORIDE 0.9% IV ×2 (11:54→17:58)
[2024-08-08] MEDS: ACYCLOVIR SODIUM IV ×2 (11:54→17:58)
[2024-08-08 12:15] LABS: Glucose, Whole Blood 59 mg/dL (60-115)
[2024-08-08] MEDS: fentaNYL citrate/NS 1,000 MCG/100 ML PLAST..BAG 20 MCG IVCONT ×3 (12:58→23:11)
[2024-08-08] MEDS: Norepinephrine Bitartrate/D5W 8 MG/250 ML PLAST..BAG 10.96 MG IVCONT (14:15)
--- NOTE | 2024-08-08 16:13 | MHC.CM.PN ---
Unable to accurately complete CM assessment. Patient is intubated in ICU. She is listed as a Valeria Mcdonough.
[2024-08-08 17:30] LABS: Glucose, Whole Blood 79 mg/dL (60-115)
[2024-08-08 18:53] LABS: Glucose, Whole Blood 90 mg/dL (60-115)
[2024-08-08] MEDS: Midazolam HCl 2 MG/2 ML VIAL 4 MG IVPUSH (19:20)
[2024-08-08] MEDS: Cisatracurium Besylate 20 MG/10 ML VIAL IVPUSH ×2 (19:35→20:02)
[2024-08-08] MEDS: propofoL 200 MG/20 ML VIAL 100 MG IVPUSH (20:45)
[2024-08-08 21:23] LABS: Vancomycin Random 27.8 mcg/mL (15-20)
[2024-08-09] VITALS (30 sets, daily range): BP systolic 98–127; BP diastolic 40–70; PULSE 51–84; RESP 9–20; TEMP 35–37.1; O2SAT 91–100; BMI 35.8
--- NOTE | 2024-08-09 00:26 | PC.NURSE ---
Neuro: patient sedated and vented most of the day, alert this evening, difficult time sedating, IV with sedation infiltrated, moved sedation to another IV and still hard to sedate, sedation given as ordered and noted on MAR, New IV access placed in left foot, but infiltrated, currently resting with eyes closed but easy to awaken. Patient had a moment of tremors, MD aware and in to see patient during episode.? Resp: lungs Dim TA see vent assessment for full details,? Cardiac: SR, SB to ST this shift, Levophed titrated off as per protocol see MAR for Full details.?? GI/: Starks draining clear yellow urine, OG tube was removed previous shift due to missplacement. Endocrine: POC low this AM 59, aware and started on D5W at 75ml/hr, when access loss, stopped D5W provider aware and POC 90 at that time. Integumentary/Musculoskeletal: Turn and repo as tolerated and allowing staff, active range of motion when awake.???
[2024-08-09] MEDS: propofoL 1,000 MG/100 ML VIAL 31.26 MG IVCONT ×3 (02:10→08:04)
[2024-08-09 02:25] LABS: Glucose, Whole Blood 76 mg/dL (60-115)
[2024-08-09] MEDS: fentaNYL citrate/NS 1,000 MCG/100 ML PLAST..BAG 20 MCG IVCONT ×2 (03:30→08:30)
[2024-08-09] MEDS: ACYCLOVIR SODIUM IV (03:32)
[2024-08-09] MEDS: SODIUM CHLORIDE 0.9% IV (03:32)
[2024-08-09 05:18] LABS: Glucose, Whole Blood 64 mg/dL (60-115)
[2024-08-09] MEDS: Midazolam HCl 2 MG/2 ML VIAL 4 MG IVPUSH ×3 (05:30→16:45)
[2024-08-09] MEDS: Etomidate 20 MG/10 ML VIAL IVPUSH ×2 (06:04→06:10)
[2024-08-09] MEDS: Ketamine HCl/NS 50 MG/5 ML SYRINGE 100 MG IVPUSH (06:10)
[2024-08-09 06:19] LABS: Glucose, Whole Blood 71 mg/dL (60-115)
[2024-08-09] MEDS: Cisatracurium Besylate 20 MG/10 ML VIAL IVPUSH ×4 (06:20→06:32)
[2024-08-09 06:51] LABS: Glucose, Whole Blood 82 mg/dL (60-115)
--- NOTE | 2024-08-09 07:26 | PC.NURSE ---
Assumed care 2300 - pt intubated and sedated, agitated with care - frequently sitting? up in bed, attempting?to pull ET tube. On propofol and fentanyl - see MAR for titrations. Placed on PSV at 0030 by RT, placed back on ACVC around 0330 - see vent assessment.? Attempted to obtain 2nd IV access, unsuccessful d/t agitation. D5, keppra, and zosyn unable to administer d/t loss of? IV access - RICKIE Bates aware.? Around 0500 another attempt made for IV access. Pt continues to be agitated and combative with care. Unable to be redirected. Versed 4 mg IVP,? ketamine 100 mg IVP, etomidate 20 mg IVP x2 administered with no effect on agitation - see MAR. RICKIE Bates at bedside - nimbex 20 mg IVP x4 ordered and administered with little effect on agitation - see MAR. Unable to obtain 2nd IV access. Report given to oncoming RN, safety measures in place.
[2024-08-09] MEDS: Chlorhexidine Gluc Oral Rinse 15 ML MOUTHWASH BUCCAL (08:31)
[2024-08-09 08:38] LABS: Glucose, Whole Blood 79 mg/dL (60-115)
--- NOTE | 2024-08-09 09:45 | P.PNCC_ITS ---
Subjective Subjective Date of Service: 08/09/24 Interval History: Approximately 39-year-old lady, unclear if verbal, with reported history of TBI and seizures, admitted on 08/09/2023 after ?syncopal versus seizure episode with resultant encephalopathy requiring intubation for airway support. Initial imaging essentially negative. Covered with empiric broad-spectrum antibiotics and admitted to the intensive care unit. Overnight with bouts of agitation. Critical Care Time (minutes): 60 Physical Exam 2 Vital Signs: Vital Signs: Last Vital Signs Temp 98.4 F 08/09/24 09:00 Pulse 59 08/09/24 09:00 Resp 20 08/09/24 09:00 BP 98/53 L 08/09/24 09:00 Pulse Ox 97 08/09/24 09:00 O2 Del Method Mechanical Ventil ation 08/09/24 09:00 O2 Flow Rate 100 08/08/24 14:54 FiO2 25 08/09/24 09:00 Oxygen Flow Rate 2 08/07/24 18:38 BMI result Body Mass Index 35.8 Const: General: no acute distress and other (Sedated on ventilatory support) Nutritional Appearance: obese Eyes: Sclerae: sclerae normal EOM: EOMs intact bilaterally Neck: Neck: Yes no lymphadenopathy, Yes trachea midline and Yes supple Resp: Effort & Inspection: normal respiratory effort and no respiratory distress Auscultation: clear to auscultation bilaterally Cardio: Rate: regular rate Rhythm: regular rhythm Heart sounds: no gallops, no murmurs and no rubs GI: Palpation (GI): Soft to palpation and Other GI palpation findings present ( Nontender) Auscultation: normal bowel sounds Extrem: General: Yes no pedal edema, No clubbing and No cyanosis Objective Data Labs 08/08/24 04:56 08/08/24 04:51 Labs: Laboratory Results - last 24 hr 08/08/24 08/08/24 08/08/24 09:19 11:29 17:27 Hold Purple Top POC Glucose 59 L* 79 Lipase 181 H Hold Yellow Top Random Vancomycin 08/08/24 08/08/24 08/08/24 18:49 20:52 20:56 Hold Purple Top SEE NOTE POC Glucose 90 Lipase Hold Yellow Top See Note Random Vancomycin 27.8 H* 08/09/24 08/09/24 08/09/24 02:22 05:11 06:15 Hold Purple Top POC Glucose 76 64 71 Lipase Hold Yellow Top Random Vancomycin 08/09/24 08/09/24 08/09/24 06:46 08:29 08:34 Hold Purple Top POC Glucose 82 79 Lipase Hold Yellow Top Random Vancomycin 12.0 L Microbiology Microbiology Results: Microbiology 08/07/24 20:12 Blood - Venous Blood Culture - Preliminary No growth after 24 hours. 08/07/24 20:12 Blood - Venous Blood Culture - Preliminary No growth after 24 hours. Progress Note: A&P Assessment and plan (1) Encephalopathy: Status: Acute (2) Seizure-like activity: Status: Acute Plan Assessment: Paroxysmally 39-year-old lady admitted with acute encephalopathy intubated for airway protection. Plan: Neuro: Continue empiric Keppra. Initial CT head imaging with no acute findings. More lucid this a.m. Cardiac: No acute issues. Pulmonary: Intubated for airway protection, continue to titrate off ventilatory support as tolerated. Renal: No acute issues. Endo: No acute issues. GI: No acute issues. ID: No acute issues Heme/Onc: No acute issues. Psych: No acute issues. Miscellaneous: No acute issues. Prophylaxis: Lovenox, famotidine Diet: NPO Critical care time spent: 60 minutes Quality Stroke Does the patient have a stroke diagnosis?: No VTE Prior VTE?: No VTE Risk Level:: Medical - moderate - high VTE Device Contraindication: N/A - Device Ordered VTE Drug Contraindication: N/A - Med Ordered
--- NOTE | 2024-08-09 09:57 | MHC.CLN ---
CONSULT PT IS INTUBATED AND SEDATED PT REMAINS NPO DISCUSSED AT ROUNDS WITH MD PLAN TO POSSIBLY EXTUBATE TODAY IF TF NEEDED; RECOMMEND PROMOTE AT MAX GOAL RATE 50ML/HR TO PROVIDE 1200KCALS (2025KCALS TOTAL WITH SEDATION; 24KCALS/KG), 75G PROTEIN, 1007ML FREE WATER FROM FORMULA MONITOR TOLERANCE AND LYTES FOLLOWING FOR DIET ADVANCEMENT SEE FULL CLINICAL NUTRITION ASSESSMENT
[2024-08-09 11:51] LABS: Glucose, Whole Blood 75 mg/dL (60-115)
--- NOTE | 2024-08-09 11:51 | MHC.CM.PN ---
Addendum entered by Madelyn Astorga 08/09/24 15:08: Pt now extubated and awake: able to communicate by writing: states her name is Kelsi and she is from [place]. HEART COORDINATOR with pt and trying to obtain more information. CM to follow. No records from [facility] or [facility] on pt being admitted there based on physical description; no callback from [facility] on any missing persons reports. Original Note: Pt remains intubated in ICU listed as Valeria Mcdonough: apparently pt had told the video ALS medical interpreter in the ED that her name was Kelsi. Call placed to [facility] to inquire on any missing persons fitting pt's description. They will initiate a database search and call back with any findings. CM to contact area hospitals to inquire on any recent patients that may fit pt's description. CM to follow
[2024-08-09] MEDS: Dextrose 5 % 1,000 ML 75 ML IVCONT (15:30)
[2024-08-09 16:22] LABS: Glucose, Whole Blood 78 mg/dL (60-115)
[2024-08-09] MEDS: dexmedeTOMIDine HCL/NS 400 MCG/100 ML PLAST..BAG 29.1 MCG IVCONT (16:52)
[2024-08-09 17:52] LABS: Glucose, Whole Blood 107 mg/dL (60-115)
--- NOTE | 2024-08-09 19:01 | PC.NURSE ---
Assumed care at 0700- Pt. mechanically vented and sedated. Pt. placed on PSV at 0800, sedation vacation at 0930, pt. extubated at 1130. Pt. awake intermittently, tracks, follows some commands, answers questions and communicates via writing and ASL. When asked to write name, pt. writes Kelsi . Pt. asked multiple times to write last name or with no response. When asked where are you from? Pt. writes [place] . Pt. unable to give detailed history, continuously pulling at medical lines and attempting to get out of bed, requiring frequent re-direction and 1:1 Sitter. At approx. 1552 pt. with seizure like activity- upward gaze, whole body rigidity and stiffness, but pupils remain reactive- MD at bedside to evaluate. 4mg IVP versed given per MAY with good effect. At approx. 1645, pt. again with behavior explained above- MD called via telephone, 4mg IVP versed again given, precedex gtt started per MAY. SR/SB on tele, HR 40s-60s, MAPs >65. RA with 02>92%. Passed nursing swallow screen while awake. Starks remains in place draining CYU. Report given to cnc machinist 2nd shift RN.
[2024-08-09] MEDS: levETIRAcetam in NaCl (iso-os) 1,500 MG/100 ML PIGGYBACK 400 MG IV (19:28)
[2024-08-09] MEDS: dexmedeTOMIDine HCL/NS 400 MCG/100 ML PLAST..BAG 14.55 MCG IVCONT (20:15)
[2024-08-10] VITALS (21 sets, daily range): BP systolic 105–128; BP diastolic 46–66; PULSE 50–114; RESP 16–40; TEMP 36.4–37.5; O2SAT 94–100; BMI 35.4
--- NOTE | 2024-08-10 00:22 | PC.NURSE ---
Addendum entered by Anette Hightower RN 08/10/24 05:18: Per PA vp emerging media 4mg versed and attempt IV, able to get 22g to left hand. pt bathed and repo. precedex titrated and paused for low HR. Lab at bedside to get labs, pt pulling arm away, unable to get labs pt attempting to get OOB grabbed IV in forarm. Staff at bedside to asist but pt able to pull US guided IV to forearm. pt reaching for IV in hand. precexed back on. sitter remains at bedside. plan of care continues Original Note: pt removed 1 IV access, RN to bedside to attempt to replace IV. pt flaiing arms at staffing attempting to get OOB, singing out also wrote out on paper. this RN attempted to educate pt on importance IV insertion, pt continues to fail arms at staff pull covers up over arms, attempt to get OOB. pt remvoing bp cuff and sp02 monitor unable to obtain midnight vitals. Precedex increased. plan of care continues
[2024-08-10] MEDS: Midazolam HCl 2 MG/2 ML VIAL 4 MG IVPUSH (02:08)
[2024-08-10] MEDS: dexmedeTOMIDine HCL/NS 400 MCG/100 ML PLAST..BAG 29.1 MCG IVCONT (02:25)
[2024-08-10] MEDS: Dextrose 5 % 1,000 ML 75 ML IVCONT (04:42)
[2024-08-10] MEDS: Midazolam HCl 2 MG/2 ML VIAL 6 MG IM (09:09)
--- NOTE | 2024-08-10 09:28 | PC.NURSE ---
0743 patient discontinued IV despite multiple staff attempting to prevent her. made aware. unable to get new access as pt is extremely resistant to care.
--- NOTE | 2024-08-10 09:44 | PM.CCPN ---
Subjective Subjective Date of Service: 08/10/24 Interval History: Approximately 39-year-old lady, unclear if verbal, with reported history of TBI and seizures, admitted on 08/09/2023 after ?syncopal versus seizure episode with resultant encephalopathy requiring intubation for airway support. Initial imaging essentially negative. Covered with empiric broad-spectrum antibiotics and admitted to the intensive care unit. Extubated 08/09/2024. Passed swallow evaluation. Overnight with intermittent events of stiffening up, appears to be behavioral and not seizures. Critical Care Time (minutes): 0 Physical Exam Vital Signs: Vital Signs: Last Vital Signs Temp 99.5 F 08/10/24 07:00 Pulse 84 08/10/24 09:00 Resp 20 08/10/24 09:00 BP 128/65 08/10/24 09:00 Pulse Ox 94 08/10/24 09:00 O2 Del Method Room Air 08/10/24 09:00 O2 Flow Rate 2 08/10/24 05:00 FiO2 25 08/09/24 11:36 Oxygen Flow Rate 2 08/07/24 18:38 BMI result Body Mass Index 35.4 Const: General: no acute distress, alert and awake Eyes: Sclerae: sclerae normal EOM: EOMs intact bilaterally Neck: Neck: Yes no lymphadenopathy, Yes trachea midline and Yes supple Resp: Effort & Inspection: normal respiratory effort and no respiratory distress Auscultation: clear to auscultation bilaterally Cardio: Rate: regular rate Rhythm: regular rhythm Heart sounds: no gallops, no murmurs and no rubs GI: Palpation (GI): Soft to palpation and Other GI palpation findings present ( Nontender) Auscultation: normal bowel sounds Extrem: General: Yes no pedal edema, No clubbing and No cyanosis Objective Data Labs 08/08/24 04:56 08/08/24 04:51 Labs: Laboratory Results - last 24 hr 08/07/24 08/09/24 08/09/24 19:58 05:28 11:47 WBC Cancelled RBC Cancelled Hgb Cancelled Hct Cancelled MCV Cancelled MCH Cancelled MCHC Cancelled RDW Cancelled Plt Count Cancelled MPV Cancelled Immature Gran % (Auto) Cancelled Neut % (Auto) Cancelled Lymph % (Auto) Cancelled [place] % (Auto) Cancelled Eos % (Auto) Cancelled Baso % (Auto) Cancelled Lymph # (Auto) Cancelled [place] # (Auto) Cancelled Eos # (Auto) Cancelled Baso # (Auto) Cancelled Abs Immat Gran (auto) Cancelled Absolute Neuts (auto) Cancelled Absolute Nucleated RBC Cancelled Nucleated RBC % (auto) Cancelled Sodium Cancelled Potassium Cancelled Chloride Cancelled Carbon Dioxide Cancelled Anion Gap Cancelled BUN Cancelled Creatinine Cancelled Estim Creat Clear Calc Cancelled Estimated GFR Cancelled POC Glucose 78 75 Random Glucose Cancelled Calcium Cancelled Phosphorus Cancelled Magnesium Cancelled Total Bilirubin Cancelled AST Cancelled ALT Cancelled Alkaline Phosphatase Cancelled Total Protein Cancelled Albumin Cancelled 08/09/24 17:49 WBC RBC Hgb Hct MCV MCH MCHC RDW Plt Count MPV Immature Gran % (Auto) Neut % (Auto) Lymph % (Auto) [place] % (Auto) Eos % (Auto) Baso % (Auto) Lymph # (Auto) [place] # (Auto) Eos # (Auto) Baso # (Auto) Abs Immat Gran (auto) Absolute Neuts (auto) Absolute Nucleated RBC Nucleated RBC % (auto) Sodium Potassium Chloride Carbon Dioxide Anion Gap BUN Creatinine Estim Creat Clear Calc Estimated GFR POC Glucose 107 Random Glucose Calcium Phosphorus Magnesium Total Bilirubin AST ALT Alkaline Phosphatase Total Protein Albumin Microbiology Microbiology Results: Microbiology 08/07/24 20:12 Blood - Venous Blood Culture - Preliminary No growth after 48 hours. 08/07/24 20:12 Blood - Venous Blood Culture - Preliminary No growth after 48 hours. Progress Note: A&P Assessment and plan (1) Encephalopathy: Status: Acute (2) Seizure-like activity: Status: Acute Plan Assessment: Paroxysmally 39-year-old lady admitted with acute encephalopathy intubated for airway protection Plan: Neuro: Continue empiric Keppra. Initial CT head imaging with no acute findings. With intermittent episodes of whole body stiffening, but with purposeful activities through those episode, appears to be behavioral. Cardiac: No acute issues. Pulmonary: Intubated for airway protection, extubated 08/09/2024. Renal: No acute issues. Endo: No acute issues. GI: No acute issues. ID: No acute issues Heme/Onc: No acute issues. Psych: No acute issues. Miscellaneous: No acute issues. Prophylaxis: Lovenox Diet: Regular Quality Stroke Does the patient have a stroke diagnosis?: No VTE Prior VTE?: No VTE Risk Level:: Medical - moderate - high VTE Device Contraindication: N/A - Device Ordered VTE Drug Contraindication: N/A - Med Ordered
--- NOTE | 2024-08-10 09:53 | MHC.CM.PN ---
Pt to transfer to the medical floor today: No further information obtained from pt using writing. Pt not engaging in communication. No reports of a missing person fitting pt's description filed with [facility]. No pt visits at [facility] or [facility]. Pt only states her name is Kelsi and she is from [place]. CM to continue to follow for d/c planning needs
[2024-08-10] MEDS: Acetaminophen 325 MG TABLET 650 MG PO ×2 (10:39→16:39)
[2024-08-10] MEDS: levETIRAcetam 1,000 MG TABLET 1000 MG PO (10:39)
[2024-08-10] MEDS: diphenhydrAMINE HCL 50 MG/ML VIAL IM (13:40)
[2024-08-10] MEDS: Ketamine HCl 500 MG/5 ML VIAL 200 MG IVPUSH (13:44)
--- NOTE | 2024-08-10 14:50 | PC.NURSE ---
Addendum entered by Apple Erazo RN 08/10/24 18:28: vitals obtained when possible. patient removes all medical devices put on her and is combative with care Addendum entered by Apple Erazo RN 08/10/24 14:59: unable to obtain ekg due to patient being violent/combative. noted to have 101 fever before removal of temp sensing MD frandy aware. pt had already been given tylenol Original Note: patient was to be downgraded to tele floor today. immediately before transfer, patient got out of bed despite redirection and attempted to exit through the unit doors. patient became violent and combative when attempting to redirect her. a code assist was called overhead and patient had to be placed in restraints to prevent her injuring herself or others.
[2024-08-10] MEDS: lamoTRIgine 100 MG TABLET PO (16:35)
[2024-08-10 18:11] LABS: Glucose, Whole Blood 96 mg/dL (60-115)
[2024-08-11] VITALS (22 sets, daily range): BP systolic 108–153; BP diastolic 48–106; PULSE 58–94; RESP 14–21; TEMP 36.7–37.7; O2SAT 93–99; BMI 34.4
[2024-08-11 04:49] LABS: MANUAL DIFF FLAG NO
[2024-08-11 04:50] LABS: Basophils Percent Auto 0.9 % (0-2); Eosinophils Absolute Auto 0.3 X10*3/uL (0.0-0.4); Eosinophils Percent Auto 5.9 % (0-4); Hematocrit 28.5 % (37.0-47.0); Imm Gran Abs Auto 0.01 X10*3/uL (0.00-0.03); Imm Gran Pct Auto 0.2 % (0.0-0.4); Lymphocytes Percent Auto 42.8 % (20-40); Mean Corpuscular HGB Conc 31.6 g/dl (31.0-35.0); Mean Corpuscular Hemoglobin 23.1 pg (27.0-33.0); Mean Corpuscular Volume 73.1 fL (80.0-98.0); Mean Platelet Volume 10.9 fL (9.4-12.3); Monocytes Absolute Auto 0.4 X10*3/uL (0.1-1.2); Monocytes Percent Auto 8.9 % (2-11); Neutrophils Absolute Auto 1.9 x10*3/uL (2.0-8.3); Neutrophils Percent Auto 41.3 % (45-73); Platelet Count 235 X10*3/uL (160-400); Red Cell Distribution Width 15.9 % (11.0-16.0); White Blood Count 4.6 X10*3/uL (4.8-10.8)
[2024-08-11 04:51] LABS: Glucose, Whole Blood 77 mg/dL (60-115)
[2024-08-11] MEDS: levETIRAcetam in NaCl (iso-os) 1,000 MG/100 ML PIGGYBACK 400 MG IV (04:52)
[2024-08-11] MEDS: Midazolam HCl 2 MG/2 ML VIAL 4 MG IM ×2 (04:53→05:24)
[2024-08-11 05:08] LABS: Alanine Aminotransferase 23 U/L (0-31); Alkaline Phosphatase 194 U/L (39-117); Anion Gap 11 (12-20); Aspartate Amino Transferase 39 U/L (5-31); Bilirubin Total 0.3 mg/dL (0.0-1.0); Blood Urea Nitrogen < 3 mg/dL (9-16); Calcium 7.5 mg/dL (8.4-10.2); Carbon Dioxide 23 mmol/L (22-29); Chloride 115 mmol/L (96-108); Creatinine Clr Calc Pharmacy 149.3; Estimated Glomerular Filt Rate > 60; Glucose Random 78 mg/dL (60-115); Potassium 3.1 mmol/L (3.3-5.1); Sodium 146 mmol/L (135-145); Total Protein 6.3 g/dL (6.5-8.0)
[2024-08-11 05:17] LABS: Appearance Urine Clear; Color Urine Yellow; Glucose Urine UA Negative (Negative); Leukocyte Esterase Urine Negative (Negative); Nitrite Urine Negative (Negative); Specific Gravity - Urine 1.015 (1.005-1.025); Urine Blood Negative (Negative); Urine Ketones Negative (Negative); Urine Protein Negative (Neg-Trace)
[2024-08-11] MEDS: Haloperidol Lactate 5 MG/ML VIAL IM (05:36)
--- NOTE | 2024-08-11 07:08 | PC.NURSE ---
Assumed care of this patient at 19:00. Patient remains in the ICU with a 1:1 female sitter and in-room camera due to elopement risk as evidenced by elopement attempts earlier today.? The pt remains impulsive and continued with exit seeking behaviors this evening despite 1:1 female sitter. Communication with this patient is done in writing as she presents as non-verbal and deaf. Pt reads writers communications and either responds in writing back or by nodding her head for ?yes? or shaking head side to side for ?no?; pt furrowed her brow and shook her head side to side when she was given the written option to communicate by ASL tablet embedded case manager. This patient wrote responses to this consumer loan underwriter's written assessment questions as follows: Kelsi for name, [birth year] for birthday, [facility] for place and 2024 for year. The patient would not write/describe her situation or where she came from.? Patient did allow consumer loan underwriter to obtain an initial set of vitals in the evening; those the pt has refused all other attempts tonight. Hourly rounding provided and RR documented. Breathing remains even and unlabored without distress. ? Patient refused scheduled po keppra and lamictal. River Rafting Guide offered to crush meds and place in applesauce or pudding. The patient continued to refuse meds despite providing education on risks including seizures. PA notified.? River Rafting Guide and ERP TECHNICAL LEAD attempted to obtain scheduled 23:00 POC. This patient became combative and pushed staff away. PA orders for IV versed, though unfortunately, the pt reportedly pulled her IV out earlier today and has continued to refuse replacement and becomes agitated when mentioned tonight. The PA was made aware and advised this consumer loan underwriter to offer po snacks or fluids to ensure the pt?s blood glucose does not decrease further overnight. This consumer loan underwriter communicated the offer and risks of hypoglycemia to the patient which she read, shook her head side to side, closed her eyes, and placed the blankets over her head. PA notified. Patient refused to attempt voiding on commode or allow staff to bladder scan overnight despite multiple attempts (pt had wise catheter removed during the day). The pt again furrowed her brow and shook her head side to side before covering her face with the blanket after reading this consumer loan underwriter?s many requests and education attempts.? At approximately 04:15 the patient stood up and attempted to exit seek. River Rafting Guide and 1:1 sitter at bedside attempted to redirect the patient and assist to the commode. Patient pushed away from staff assisting her and placed herself back in the bed with blankets.? At approximately 04:30, the 1:1 Sitter at bedside alerted this consumer loan underwriter sitting at the nurses station just outside of the room that she was concerned this patient was ?shaking a lot?. River Rafting Guide and additional staff immediately responded to the bedside and this patient was observed stiff and posturing, no blink to threat noted on assessment. DUSTY Buenrostro was notified and presented immediately to the bedside. Concerned the pt was demonstrating seizure activity. Orders for IM versed, given with +effect. The patient appeared post-ictal and was no longer stiff. The patient was placed on tele and o2 monitoring. Vitals obtained, stable. Breathing even and unlabored without distress and the pt was maintaining their airway. Staff were able to obtain right arm ultrasound IV while the patient was post-ictal. Lab were obtained from this new IV. A dose of IV keppra was given after labs were obtained. A POC was obtained showing 77. ? The patient was bladder scanned during post-ictal period due to concern for retention, as the pt was not incontinent during seizure activity. Bladder scanned for 530ml. PA verbal order for straight catheterization. White discharge was noted on pericare prior to catheterization. PA notified and visualized, advised likely yeast. Fluconazole ordered though not available on global [employer] search. PA notified and medication was rescheduled to later this morning when available. S/C produced odorless clear, yellow urine. Urine labs sent as per PA order. Thorough chelle-care was provided. Soon after, the pt was again noted to be posturing though this time with +blink to threat and looking at consumer loan underwriter and PA at the bedside with +perrla. IV versed was ordered though was switched to IM per PA after the pt was observed pulling on her new IV, and the cannula was noted to be significantly displaced/removed. The pt remained agitated and combative and assaultive towards staff, unable to redirect. Pt was unable to maintain safety. PA orders for bilateral soft wrist restraints and IM haldol. 1:1 Female sitter remains at the bedside to assist with redirecting and safety.? Breathing remains even and unlabored without distress. VSS. Safety measures and seizure precautions in place. Please see shift assessments, tasks in the worklist, and MAR for full details. Handoff report given to oncoming RN at 06:45.
--- NOTE | 2024-08-11 08:42 | MHC.CLN ---
F/U PT EXTUBATED DIET ADVANCED TO REGULAR 25% PO X [address] PO [address] TO FOLLOW WEEKLY
--- NOTE | 2024-08-11 10:02 | PM.CCPN ---
Subjective Subjective Date of Service: 08/11/24 Interval History: 39-year-old lady, unclear if verbal, with reported history of TBI and seizures, admitted on 08/09/2023 after ?syncopal versus seizure episode with resultant encephalopathy requiring intubation for airway support. Initial imaging essentially negative. Covered with empiric broad-spectrum antibiotics and admitted to the intensive care unit. Extubated 08/09/2024. Passed swallow evaluation. Continues with intermittent agitation. With seizure episode responded well to benzodiazepines. Critical Care Time (minutes): 0 Physical Exam Vital Signs: Vital Signs: Last Vital Signs Temp 98.5 F 08/11/24 08:00 Pulse 68 08/11/24 09:00 Resp 16 08/11/24 09:00 BP 124/50 L 08/11/24 09:00 Pulse Ox 93 08/11/24 09:00 O2 Del Method Room Air 08/11/24 09:00 O2 Flow Rate 2 08/10/24 05:00 FiO2 25 08/09/24 11:36 Oxygen Flow Rate 2 08/07/24 18:38 BMI result Body Mass Index 34.4 Const: General: no acute distress, alert, awake and other (Nonverbal) Eyes: Sclerae: sclerae normal EOM: EOMs intact bilaterally Neck: Neck: Yes no lymphadenopathy, Yes trachea midline and Yes supple Resp: Effort & Inspection: normal respiratory effort and no respiratory distress Auscultation: clear to auscultation bilaterally Cardio: Rate: regular rate Rhythm: regular rhythm Heart sounds: no gallops, no murmurs and no rubs GI: Palpation (GI): Soft to palpation and Other GI palpation findings present ( Nontender) Auscultation: normal bowel sounds Extrem: General: Yes no pedal edema, No clubbing and No cyanosis Objective Data Labs 08/11/24 04:43 08/11/24 04:43 Labs: Laboratory Results - last 24 hr 08/10/24 08/11/24 08/11/24 18:09 04:43 04:47 WBC 4.6 L RBC 3.90 L Hgb 9.0 L Hct 28.5 L MCV 73.1 L MCH 23.1 L MCHC 31.6 RDW 15.9 Plt Count 235 MPV 10.9 Immature Gran % (Auto) 0.2 Neut % (Auto) 41.3 L Lymph % (Auto) 42.8 H [place] % (Auto) 8.9 Eos % (Auto) 5.9 H Baso % (Auto) 0.9 Lymph # (Auto) 2.0 [place] # (Auto) 0.4 Eos # (Auto) 0.3 Baso # (Auto) 0.0 Abs Immat Gran (auto) 0.01 Absolute Neuts (auto) 1.9 L Absolute Nucleated RBC 0.000 Nucleated RBC % (auto) 0.0 Sodium 146 H Potassium 3.1 L Chloride 115 H Carbon Dioxide 23 Anion Gap 11 L BUN < 3 L Creatinine 0.70 Estim Creat Clear Calc 149.3 Estimated GFR > 60 POC Glucose 96 77 Random Glucose 78 Calcium 7.5 L Total Bilirubin 0.3 AST 39 H ALT 23 Alkaline Phosphatase 194 H Total Protein 6.3 L Albumin 3.0 L Urine Color Urine Appearance Urine pH Ur Specific [place] Urine Protein Urine Glucose (UA) Urine Ketones Urine Blood Urine Nitrite Ur Leukocyte Esterase 08/11/24 05:10 WBC RBC Hgb Hct MCV MCH MCHC RDW Plt Count MPV Immature Gran % (Auto) Neut % (Auto) Lymph % (Auto) [place] % (Auto) Eos % (Auto) Baso % (Auto) Lymph # (Auto) [place] # (Auto) Eos # (Auto) Baso # (Auto) Abs Immat Gran (auto) Absolute Neuts (auto) Absolute Nucleated RBC Nucleated RBC % (auto) Sodium Potassium Chloride Carbon Dioxide Anion Gap BUN Creatinine Estim Creat Clear Calc Estimated GFR POC Glucose Random Glucose Calcium Total Bilirubin AST ALT Alkaline Phosphatase Total Protein Albumin Urine Color Yellow Urine Appearance Clear Urine pH 6.0 Ur Specific [place] 1.015 Urine Protein Negative Urine Glucose (UA) Negative Urine Ketones Negative Urine Blood Negative Urine Nitrite Negative Ur Leukocyte Esterase Negative Microbiology Microbiology Results: Microbiology 08/07/24 20:12 Blood - Venous Blood Culture - Preliminary No growth after 48 hours. 08/07/24 20:12 Blood - Venous Blood Culture - Preliminary No growth after 48 hours. Progress Note: A&P Assessment and plan (1) TBI (traumatic brain injury): Status: Acute (2) Seizure disorder: Status: Acute Plan Assessment: Approximately 39-year-old lady admitted with acute encephalopathy intubated for airway protection, extubated 08/09/2024, continues with intermittent seizures Plan: Neuro: Continue empiric Keppra. Initial CT head imaging with no acute findings. Underlying seizure disorder, continue on Keppra, add Lamictal. Cardiac: No acute issues. Pulmonary: Intubated for airway protection, extubated 08/09/2024. Renal: No acute issues. Endo: No acute issues. GI: No acute issues. ID: No acute issues Heme/Onc: No acute issues. Psych: No acute issues. Miscellaneous: No acute issues. Prophylaxis: Lovenox Diet: Regular Quality Stroke Does the patient have a stroke diagnosis?: No VTE Prior VTE?: No VTE Risk Level:: Medical - moderate - high VTE Device Contraindication: N/A - Device Ordered VTE Drug Contraindication: N/A - Med Ordered
[2024-08-11] MEDS: lamoTRIgine 100 MG TABLET PO ×2 (10:03→20:51)
[2024-08-11] MEDS: QUEtiapine Fumarate 200 MG TABLET PO ×2 (10:03→20:51)
[2024-08-11] MEDS: Fluconazole 150 MG TABLET PO (10:03)
--- NOTE | 2024-08-11 11:01 | P.CDIM_ITS ---
PROVIDER RESPONSE TEXT: To clarify, the appropriate diagnosis supported by the clinical indicators: Clinically unable to determine (explain): Likely underlying psychiatric condition QUERY TEXT: PHYSICIAN'S DOCUMENTATION REQUEST Date of Query: 08/11/2024 10:42 AM EDT Patient Name: Valeria Mcdonough Admit Date: 08/08/2024 Dear Rupert Hays MD, A review of the medical record indicates additional documentation may be needed. Please review below and update the documentation accordingly. Clinical Indicators: alteration in mental status, cause unknown history TBI/seizures admitted with acute encephalopathy Based on the above, please further specify, in the Progress Notes, the known or suspected type of the documented encephalopathy: Metabolic Septic Toxic Toxic metabolic Hypertensive Anoxic Alcoholic Hepatic (reported as hepatic failure and needs further specificity as to acute, subacute, or chronic) Due to a specified condition (such as UTI, hyponatremia, CVA, etc.) Other (explain) Clinically unable to determine (explain) Thank you, Laura Frye RN Use of terms such as suspected, likely, concern for, or probable (associated with a specific diagnosi s that is being evaluated, monitored, or treated as if it exists) are acceptable and can be coded in the inpatient se tting, when documented at the time of discharge. Please use your independent medical judgment in providing your response. THIS QUERY IS PART OF THE PERMANENT MEDICAL RECORD
[2024-08-11] MEDS: Gabapentin 300 MG CAPSULE 900 MG PO ×3 (11:20→20:51)
--- NOTE | 2024-08-11 14:01 | MHC.CM.PN ---
Pt transferred back to ICU on 08/10 d/t escalative behaviors: pt able to communicate using written words, ASL but isn't consistently willing to communicate when questions asked to her. Pt states her name is Kelsi Riley but also stated it was Dylan or Horacio - date of 04/02/1990. Plan of care ongoing - d/c plan not finalized d/t lack of information from pt. CM to follow
--- NOTE | 2024-08-11 19:13 | PC.NURSE ---
Resumed care of patient at 0700, Neuro: patient sleeping at beginning of shift, woke up at about 930, requesting to leave, removed restraints and got out of bed, patient able to ambulate, with steady gait, alert non verbal to minimal verbal, able to write answers on paper, answers correct to questions asked, stated home meds and MD aware and adjusted doses accordingly, refusing IV access but agreed to PO Medications, Seroquel and Lamictal given PO this morning, Gabapentin given as ordered, patient agreed to get washed up this morning and ate breakfast with assistance and Lunch with set up. At lunch requesting to leave again and asking for clothes, a second dose of Gabapentin given as ordered and the patient resting with eye closed. Resp: lungs Dim TA? Cardiac: SR, SB this shift, no edema EKG completed as ordered? GI/: patient voided x1 this shift approximately 500ml, refusing bladder scan, DTV 2100 Endocrine: patient tolerating diet well Integumentary/Musculoskeletal: Small skin tear to left upper inner arm, xeroform with tegaderm placed.
[2024-08-11] MEDS: levETIRAcetam 1,000 MG TABLET 2000 MG PO (20:51)
[2024-08-12 05:30] VITALS: PULSE 66; RESP 16; O2SAT 92
--- NOTE | 2024-08-12 09:40 | P.PNCC_ITS ---
Subjective Subjective Date of Service: 08/12/24 Interval History: 39-year-old lady, unclear if verbal, with reported history of TBI and seizures, admitted on 08/09/2023 after ?syncopal versus seizure episode with resultant encephalopathy requiring intubation for airway support. Initial imaging essentially negative. Covered with empiric broad-spectrum antibiotics and admitted to the intensive care unit. Extubated 08/09/2024. Passed swallow evaluation. Continues with intermittent agitation, now better controlled. No events overnight. Critical Care Time (minutes): 0 Physical Exam 2 Vital Signs: Vital Signs: Last Vital Signs Temp 98.4 F 08/11/24 23:39 Pulse 66 08/12/24 05:30 Resp 16 08/12/24 05:30 BP 111/57 L 08/11/24 23:39 Pulse Ox 92 08/12/24 05:30 O2 Del Method Room Air 08/12/24 09:00 O2 Flow Rate 2 08/10/24 05:00 FiO2 25 08/09/24 11:36 Oxygen Flow Rate 2 08/07/24 18:38 BMI result Body Mass Index 34.4 Const: General: no acute distress, alert and awake Eyes: Sclerae: sclerae normal EOM: EOMs intact bilaterally Neck: Neck: Yes no lymphadenopathy, Yes trachea midline and Yes supple Resp: Effort & Inspection: normal respiratory effort and no respiratory distress Auscultation: clear to auscultation bilaterally Cardio: Rate: regular rate Rhythm: regular rhythm Heart sounds: no gallops, no murmurs and no rubs GI: Palpation (GI): Soft to palpation and Other GI palpation findings present ( Nontender) Auscultation: normal bowel sounds Extrem: General: Yes no pedal edema, No clubbing and No cyanosis Objective Data Labs 08/11/24 04:43 08/11/24 04:43 Microbiology Microbiology Results: Microbiology 08/07/24 20:12 Blood - Venous Blood Culture - Preliminary No growth after 48 hours. 08/07/24 20:12 Blood - Venous Blood Culture - Preliminary No growth after 48 hours. Progress Note: A&P Assessment and plan (1) TBI (traumatic brain injury): Status: Acute (2) Seizure disorder: Status: Acute Plan Assessment: Approximately 39-year-old lady admitted with acute encephalopathy intubated for airway protection, extubated 08/09/2024, continues with intermittent seizures Plan: Neuro: Continue empiric Keppra. Initial CT head imaging with no acute findings. Underlying seizure disorder, continue on Keppra and Lamictal. No repeat breakthrough seizures. Cardiac: No acute issues. Pulmonary: Intubated for airway protection, extubated 08/09/2024. Renal: No acute issues. Endo: No acute issues. GI: No acute issues. ID: No acute issues Heme/Onc: No acute issues. Psych: No acute issues. Miscellaneous: No acute issues. Prophylaxis: Lovenox Diet: Regular Quality Stroke Does the patient have a stroke diagnosis?: No VTE Prior VTE?: No VTE Risk Level:: Medical - moderate - high VTE Device Contraindication: N/A - Device Ordered VTE Drug Contraindication: N/A - Med Ordered
--- NOTE | 2024-08-12 10:26 | P.CDIM_ITS ---
PROVIDER RESPONSE TEXT: To clarify, the appropriate diagnosis supported by the clinical indicators: generalized seizures QUERY TEXT: PHYSICIAN'S DOCUMENTATION REQUEST Date of Query: 08/12/2024 10:10 AM EDT Patient Name: Valeria Mcdonough Admit Date: 08/08/2024 Dear Rupert Hays MD, A review of the medical record indicates additional documentation may be needed. Please review below and update the documentation accordingly. A diagnosis of seizure(s) was documented on (insert date). Clinical Indicators: patient with intermittent seizures treatment Keppra and Lamictal If possible, please further clarify the type of seizure(s): complex partial seizures focal seizures generalized seizures related to (please identify) Other (explain) Clinically unable to determine (explain) Thank you, Laura Frye RN Use of terms such as suspected, likely, concern for, or probable (associated with a specific diagnosi s that is being evaluated, monitored, or treated as if it exists) are acceptable and can be coded in the inpatient se tting, when documented at the time of discharge. Please use your independent medical judgment in providing your response. THIS QUERY IS PART OF THE PERMANENT MEDICAL RECORD
[2024-08-12] MEDS: Gabapentin 300 MG CAPSULE 900 MG PO (10:49)
[2024-08-12] MEDS: QUEtiapine Fumarate 200 MG TABLET PO (10:49)
[2024-08-12] MEDS: levETIRAcetam 1,000 MG TABLET 2000 MG PO (10:49)
[2024-08-12] MEDS: lamoTRIgine 100 MG TABLET PO (10:49)
[2024-08-12] MEDS: Fluconazole 150 MG TABLET PO (10:50)
[2024-08-12] MEDS: Potassium Chloride Packet 20 MEQ PACKET 60 MEQ PO (10:51)
--- NOTE | 2024-08-12 13:42 | MHC.CARE ---
CARE Team consult was placed for crisis evaluation; CARE Team jeimy met with Pt who declined to answer question. Per nursing Pt has given various names Kayli Farris and Benoit Richardson with 04/02/1990. CARE Team called [facility]. They have no current person in the system with that name.
--- NOTE | 2024-08-12 13:45 | MHC.CARE ---
T/W contacted the following agencies: [facility] and provided Pt's and multiple names that were given. They had no record of her in their system The [facility] office and left a message. Connie from the office returned the phone call and is looking into whether or not Pt may be known to them T/W left a message with the [facility] office with information. Waiting on a call back at this time BEST team ([facility] crisis team) was contacted and they did not have any information in their system with those names and D/O/B [facility] Crisis team was contacted and they do not have any record of Pt being seen by crisis or in the [facility] system An extensive online search was conducted by the CARE team and nothing was found in regard to a missing person meeting that description
--- NOTE | 2024-08-12 14:26 | P.CNPS_ITS ---
History of Present Illness Date of Service: 08/12/2024 Chief Complaint: AMS Sources of Information: patient interviewed, chart reviewed and crisis/core team assessment reviewed HPI Narrative: Pt has not provided any name. She was brought via EMS from [facility] after found on the group with suspected syncope vs seizure. Per EMS report, pt mostly non verbal but able to communicate typing on EMT's phone. Per EMS report, pt had reported she was recently discharged from the hospital after tx for pneumonia. She apparently was opposing to be transported to the hospital, but presented with tachypnea and progressive respiratory distress. She did not provide then when asked name or . In the ED, pt presented as combative. She was febrile, thought at the moment to have AMS, not cooperative with care. Pertient labs in the ED, include cbc with leukopenia, microcytic anemia, CMP with low potassium, BUN 10, Cr 0.70, creatinine clearance 150, LFTs AST 39, ALT 23, Alk 194. Head CT without acute findins. Chest CT showed pneumonitis versus pneumonia. Pt continued to present as combative requiring several doses of IM versed, droperidol and ketamine. She had seizure like activity, given loading dose of keppra. She was ultimately intubated to protect airway. Utox was positive for fentanyl, benzo, THC. Pt treated with IV antibiotic. Extubated. Pt continued to decline giving her name and attempting to elope from the ICU. She was medically cleared. She had been communicating with providers writing her answer as she apparently is mute. Psychiatry asked to assess pt for acute psychiatric symptoms affecting her ability to function. Pt seen in the ICU. She is alert, wearing hospital gown. She is tall, MO. She was attempting to elope the unit, punching the doors, then sat on the floor. She did agree to talk with this field underwriter and go to her room. She wrote on a piece of paper that she had been discharged from a hospital recently after she was treated for pneumonia. She reports hospital in the area, maybe [facility] (as this field underwriter named a few hospitals in the area and she nodded when I said [facility]). She reports she lives in [place] and [place]. When asked about events leading to this admission, pt wrote that she was walking at [facility] and something happened that she can't remember but later EMS was called. She wrote that she wanted to leave and that she had waited already too long and she had to go. When asked why she is not giving her name and date of , she reports she has done so in the past. Again this field underwriter asked that we do not have a name nor a . This field underwriter asked if she was concern about her safety or someone coming after her. She hesitated and later wrote, NO. She was then tearful. Again this field underwriter asked what was going on. She continue to field underwriter or point at sentence saying that she needs to go. She mentioned that her car was at [facility]. She reported it is a [employer] Fusion Hybrid bright plates ending 162. She reported she has a year old son who she has not seen in a long time. She was tearful writing about her son. She reported her son is with her mother in [place]. She declined this field underwriter calling her mother. She reported she did not trust her. This field underwriter asked her about someone else who she may trust, she wrote she has her cell phone in the car and does not have a phone number with her. She then insisted she had to go and was tired of waiting. Diagnostics Vital Signs (24Hr): Vital Signs - 24 hr 08/11/24 19:01 08/11/24 21:10 08/11/24 23:39 Temperature 98.0 F 98.4 F Pulse Rate 90 75 Respiratory Rate 21 H 18 16 Blood Pressure 153/98 H 111/57 L Pulse Oximetry 99 93 Oxygen Delivery Method Room Air Room Air 08/12/24 05:30 08/12/24 07:00 08/12/24 08:00 Temperature Pulse Rate 66 Respiratory Rate 16 Blood Pressure Pulse Oximetry 92 Oxygen Delivery Method Room Air Room Air Room Air 08/12/24 09:00 08/12/24 10:00 08/12/24 11:00 Temperature Pulse Rate Respiratory Rate Blood Pressure Pulse Oximetry Oxygen Delivery Method Room Air Room Air Room Air 08/12/24 12:00 08/12/24 13:00 08/12/24 14:00 Temperature Pulse Rate Respiratory Rate Blood Pressure Pulse Oximetry Oxygen Delivery Method Room Air Room Air Room Air BMI result Body Mass Index 34.4 Labs 08/11/24 04:43 08/11/24 04:43 Labs: Laboratory Results - last 48 hr 08/10/24 08/11/24 08/11/24 18:09 04:43 04:47 WBC 4.6 L RBC 3.90 L Hgb 9.0 L Hct 28.5 L MCV 73.1 L MCH 23.1 L MCHC 31.6 RDW 15.9 Plt Count 235 MPV 10.9 Immature Gran % (Auto) 0.2 Neut % (Auto) 41.3 L Lymph % (Auto) 42.8 H Buchanan % (Auto) 8.9 Eos % (Auto) 5.9 H Baso % (Auto) 0.9 Lymph # (Auto) 2.0 Buchanan # (Auto) 0.4 Eos # (Auto) 0.3 Baso # (Auto) 0.0 Abs Immat Gran (auto) 0.01 Absolute Neuts (auto) 1.9 L Absolute Nucleated RBC 0.000 Nucleated RBC % (auto) 0.0 Sodium 146 H Potassium 3.1 L Chloride 115 H Carbon Dioxide 23 Anion Gap 11 L BUN < 3 L Creatinine 0.70 Estim Creat Clear Calc 149.3 Estimated GFR > 60 POC Glucose 96 77 Random Glucose 78 Calcium 7.5 L Total Bilirubin 0.3 AST 39 H ALT 23 Alkaline Phosphatase 194 H Total Protein 6.3 L Albumin 3.0 L Urine Color Urine Appearance Urine pH Ur Specific [place] Urine Protein Urine Glucose (UA) Urine Ketones Urine Blood Urine Nitrite Ur Leukocyte Esterase 08/11/24 05:10 WBC RBC Hgb Hct MCV MCH MCHC RDW Plt Count MPV Immature Gran % (Auto) Neut % (Auto) Lymph % (Auto) Buchanan % (Auto) Eos % (Auto) Baso % (Auto) Lymph # (Auto) Buchanan # (Auto) Eos # (Auto) Baso # (Auto) Abs Immat Gran (auto) Absolute Neuts (auto) Absolute Nucleated RBC Nucleated RBC % (auto) Sodium Potassium Chloride Carbon Dioxide Anion Gap BUN Creatinine Estim Creat Clear Calc Estimated GFR POC Glucose Random Glucose Calcium Total Bilirubin AST ALT Alkaline Phosphatase Total Protein Albumin Urine Color Yellow Urine Appearance Clear Urine pH 6.0 Ur Specific [place] 1.015 Urine Protein Negative Urine Glucose (UA) Negative Urine Ketones Negative Urine Blood Negative Urine Nitrite Negative Ur Leukocyte Esterase Negative Mental Status Exam Mental Status Exam Narrative: Appearance: wearing hospital gown, MO, in NAD Behavior: initially guarded, then slightly more cooperative Psychomotor: intermittent agitation, when attempting to elope ICU Speech: mute Her writing shows ability to fully understand what is being asked and said to her. Her thought process based on her writing is linear and coherent. Content mostly consistent with wanting to leave and not wanting to provide more information about her identity. No overt signs of psychosis. She seemed somewhat fearful and guarded, but unclear if in a paranoid/delusional way or an actual threat. No SI/HI. Insight/judgment: poor x 2 but seemed somewhat intact. alert, oriented to place, month, situation. Medications Medications Current Medications Acetaminophen (Acetaminophen 325 Mg Tablet) 650 mg PO Q6H PRN PRN Reason: Fever >100.4 Last Admin: 08/10/24 16:39 Dose: 650 mg Enoxaparin Sodium (Enoxaparin Sodium 40 Mg/0.4 Ml Syringe) 40 mg SUBCUT Q24H [facility] Last Admin: 08/12/24 01:48 Dose: Not Given Fluconazole (Fluconazole 150 Mg Tablet) 150 mg PO DAILY [facility] Last Admin: 08/12/24 10:50 Dose: 150 mg Gabapentin (Gabapentin 300 Mg Capsule) 900 mg PO TID [facility] Last Admin: 08/12/24 10:49 Dose: 900 mg Lamotrigine (Lamotrigine 100 Mg Tablet) 100 mg PO BID [facility] Last Admin: 08/12/24 10:49 Dose: 100 mg Levetiracetam (Levetiracetam 1,000 Mg Tablet) 2,000 mg PO BID [facility] Last Admin: 08/12/24 10:49 Dose: 2,000 mg Potassium Chloride (Potassium Chloride Er 20 Meq Tab.Er.Prt) 40 meq PO BID [facility] Stop: 08/12/24 21:01 Quetiapine Fumarate (Quetiapine Fumarate 200 Mg Tablet) 200 mg PO BID [facility] Last Admin: 08/12/24 10:49 Dose: 200 mg Sodium Chloride (0.9 % Sodium Chloride Flush 3 Ml Syringe) 3 ml IVFLUSH QSHIFT [facility] Last Admin: 08/12/24 09:22 Dose: Not Given Allergies Allergies Allergy/AdvReac Type Severity Reaction Status Date / Time No Known Allergies Allergy Verified 08/07/24 18:41 Assessment & Plan Assessment & Plan (1) Agitation: Status: Acute Code(s): R45.1 - Restlessness and agitation Plan Pt without identified name and age, who was brought to [facility] after found on the ground with suspected syncope vs seizure. In the ED pt presented as combative and attempting to leave, given that she is mute, concerned for AMS combined with medical presentation (febrile), pt was medicated for combative behaviors. Pt continued to decline giving her name and . She has been consistent in her story of recently having been dc from [facility] after tx of pneumonia. She is able to tell that she came from [facility] when something happened that she is not fully aware of (either seizure or syncopal episode) and brought here. She insists on leaving and needing to leave. At this point, she is medically cleared. She is not providing any information to obtain collateral information and she is not know to this hospital. She is guarded and not fully forthcoming but more organized in her writing and thought process to unequivocally assumed that she is having paranoid delusions. She does not present with overt signs of psychosis (delayed response, poor attention, or self dialoguing). There may be legal concerns or she may be victim of sex trafficking but none of these can be confirmed nor patient is asking for help. There is however, some degree of fear and sadness. No SI/HI. Considering the limited information we have about this patient, and given that there is no evidence of acute psychiatric symptoms affecting her judgment/insight. I do not recommend inpatient psychiatric admission at this time based on current clinical presentation and limited to non collateral information. Total time managing care of this patient today ____ minutes.
--- NOTE | 2024-08-12 14:42 | MHC.CM.PN ---
Pt has been seen by crisis and found to have no needs. Pt has not been forthcoming on her identity making d/c planning difficult - she states she has a contact in the community and will obtain her own transportation. D/C order in place.
--- NOTE | 2024-08-12 15:53 | PC.NURSE ---
Assumed care at 7am - Patient alert non verbal, times of agitation and attempting to flee, security needed at times, unable to allow patient to leave until deemed competent to make health care decisions. Patient perseverating about leaving hospital, frequently jumping out of bed and running in barba, attempting to leave unit door. Cooperating with PO meds, but refusing IM meds and any other care. Psych, crisis, and case mgmt consulted to evaulate competency, decision making and if safe to leave. Per Dr Hays, patient medically cleared. Per psych, deemed competent to make healthcare decisions and didn't meet criteria for inpatient psych admission. Patient redirectable at times and educated about risks for leaving, seizure, substance abuse, and concern about follow up care. Patient wrote that she understood risks and still wanted to go and refused to tell staff any further information about identity or emergency contact. Patient discharged with medication for seizures and narcan from pharmacy. Nodded in agreement to be compliant with taking medication as ordered. Given belongings, extra clothing, backpack with supplies (extra drinks, water), and given bus schedule and bus passes. Patient walked out of hospital, accompanied by this RN and security. Patient brought to bus stop with security, within walking distance.
--- NOTE | 2024-08-13 14:42 | PM.DS ---
DS: Providers Provider Date of Service: 08/12/24 Date of admission: 08/08/24 01:22 Date of discharge: 08/12/24 Primary care physician: Unknown Physician Consults: 08/08/24 03:35 Addiction Medicine Provider Stat Consulting Provider: Addiction Covering Reason for consultation: Positive UDS Has provider been notified: No 08/12/24 11:35 Inpt CARE Team Crisis Consult Routine Comment: Reason for consultation: Valeria Mcdonough evaluation DS: Diagnosis Discharge Diagnosis (1) Agitation: Status: Acute (2) Seizure disorder: Status: Acute (3) Autism: Status: Acute DS: Summary Hospital Course Hospital Course: 39-year-old lady with underlying autism, history of TBI, seizure disorder, admitted on 08/09/2023 after syncopal versus seizure episode with resultant encephalopathy requiring intubation for airway protection. Patient extubated on 07/30/2024. Patient mute, but able to hear and right down answers appropriately. Patient refused to provide any identifying information regarding herself except her current prescription medications that included Keppra 2 g twice a day and gabapentin 800 mg 3 times a day. Patient was restarted on her home regimen with control of her underlying seizures with no recurrence of her seizures. Patient refused further care. She was evaluated by myself and psychiatric provider and deemed competent to make decisions about her care. Patient was discharged against medical advice on 08/12/2024 with 7 day supply of her Keppra and gabapentin. Time Attestation Total time managing care of this patient today: 90 mintues. Discharge Coordination Time (in mins): 90 Quality: Safe Use of Opioids Does Pt have an Active Cancer Diagnosis on the Problem List?: No Quality: Stroke Does the patient have a stroke diagnosis?: No Physical Exam Vital Signs: Vital Signs: Last Vital Signs Temp 98.4 F 08/11/24 23:39 Pulse 66 08/12/24 05:30 Resp 16 08/12/24 05:30 BP 111/57 L 08/11/24 23:39 Pulse Ox 92 08/12/24 05:30 O2 Del Method Room Air 08/12/24 14:00 O2 Flow Rate 2 08/10/24 05:00 FiO2 25 08/09/24 11:36 Oxygen Flow Rate 2 08/07/24 18:38 BMI result Body Mass Index 34.4 Const: General: no acute distress, alert and awake Eyes: Sclerae: sclerae normal EOM: EOMs intact bilaterally Neck: Neck: Yes no lymphadenopathy, Yes trachea midline and Yes supple Resp: Effort & Inspection: normal respiratory effort and no respiratory distress Auscultation: clear to auscultation bilaterally Cardio: Rate: regular rate Rhythm: regular rhythm Heart sounds: no gallops, no murmurs and no rubs GI: Palpation (GI): Soft to palpation and Other GI palpation findings present ( Nontender) Auscultation: normal bowel sounds Extrem: General: Yes no pedal edema, No clubbing and No cyanosis Discharge Plan Discharge Anticipated Discharge Date/Time: 08/12/24 14:24 Patient Disposition: Left Against Medical Advice Discharge Diagnosis: Seizure disorder Referrals: Physician,Unknown J [Primary Care Provider] - 1 Week Discharge Medications: New levetiracetam [Keppra] 1,000 mg tablet 2,000 mg PO BID 7 Days Qty: 28 0RF gabapentin 800 mg tablet 800 mg PO TID 7 Days Qty: 21 0RF naloxone [Narcan] 4 mg/actuation spray,non-aerosol 4 mg intranasal Q2M PRN (Reason: opioid overdose) Qty: 2 0RF Rx Instructions: spray 1 dose into ONE nostril; alternate nostrils w each dose until help arrives Discharge Orders: Discharge Order (Routine); Ordered 08/12/24 Ordered By: Rupert Hays Print Language: Unable To Collect Care Plan Goals: Continue to follow-up with outpatient providers. Health Concerns: Underlying autism, TBI, and seizure disorder. Plan of Treatment: Continue to follow-up with outpatient providers. Assessment: Evaluated by myself and psychiatric provider and deemed to be competent to make decisions about her health. Discharge Date/Time: 08/12/24 15:39
== END 2024-08-12 15:39 | disposition left against medical advice (07) | DRG 101 ==
LOC: HO.ED 08-08 01:21 → HO.EDOVER 08-08 01:22 → HO.ICU 08-08 01:30 → HO.IMC 08-10 12:00 → HO.ICU 08-10 13:47
PROVIDERS: Emergency Medicine; Physician Assistant Medical; Admitting Provider Nurse Practitioner Family; Emergency Provider Emergency Medicine; Visit Provider Internal Medicine Pulmonary Disease
DX: G40.409 Other generalized epilepsy and epileptic syndromes, not intractable, without status epilepticus (principal); F84.0 Autistic disorder; D50.9 Iron deficiency anemia, unspecified; F19.10 Other psychoactive substance abuse, uncomplicated; E16.2 Hypoglycemia, unspecified; E87.6 Hypokalemia; Z87.820 Personal history of traumatic brain injury
CPT/HCPCS: 36415; 70450; 71045; 71250; 72125; 74176; 80048; 80053; 80076; 80143; 80179; 80202; 80307; 81003; 82040; 82803; 82947; 83605; 83690; 83735; 84100; 84443; 84702; 85025; 87040; 93005; 94002; 94003; 99285; J0131; J0133; J0696; J1200; J1630; J1650; J1790; J1953; J2250; J2251; J2470; J2543; J2704; J3010; J3370; J3371; J3480

== ENCOUNTER → 2024-08-07 21:06 | Outpatient (BNV) | payer SELFPAY | PROVIDERS: Emergency Provider Emergency Medicine; Visit Provider Radiology Neuroradiology | DX: N73.9 Female pelvic inflammatory disease, unspecified (principal); R91.8 Other nonspecific abnormal finding of lung field; S13.4XXA Sprain of ligaments of cervical spine, initial encounter; R22.2 Localized swelling, mass and lump, trunk; R41.82 Altered mental status, unspecified; S09.90XA Unspecified injury of head, initial encounter; Z45.02 Encounter for adjustment and management of automatic implantable cardiac defibrillator | CPT/HCPCS: 70450; 71045; 71250; 72125; 74176 ==

== ENCOUNTER 2024-08-08 01:22 | Outpatient (BNV) | payer SELFPAY | END 2024-08-08 02:26 | PROVIDERS: Admitting Provider Nurse Practitioner Family; Emergency Provider Emergency Medicine; Visit Provider Internal Medicine Cardiovascular Disease | DX: R00.1 Bradycardia, unspecified (principal) | CPT/HCPCS: 93010 ==

== ENCOUNTER → 2024-08-08 01:22 | Outpatient (BNV) | payer SELFPAY | PROVIDERS: Admitting Provider Nurse Practitioner Family; Emergency Provider Emergency Medicine; Visit Provider Nurse Practitioner Family | DX: R56.9 Unspecified convulsions (principal); G93.40 Encephalopathy, unspecified; R50.9 Fever, unspecified | CPT/HCPCS: 99223 ==

== ENCOUNTER → 2024-08-08 01:22 | Outpatient (BNV) | payer SELFPAY | PROVIDERS: Admitting Provider Nurse Practitioner Family; Emergency Provider Emergency Medicine; Visit Provider Social Worker | DX: F19.90 Other psychoactive substance use, unspecified, uncomplicated (principal); R45.1 Restlessness and agitation | CPT/HCPCS: 99232 ==

== ENCOUNTER → 2024-08-08 01:22 | Outpatient (BNV) | payer SELFPAY | PROVIDERS: Admitting Provider Nurse Practitioner Family; Emergency Provider Emergency Medicine; Visit Provider Internal Medicine Pulmonary Disease | DX: R56.9 Unspecified convulsions (principal); G93.40 Encephalopathy, unspecified | CPT/HCPCS: 99291 ==